=== PATIENT | male | born 1955 | race Hispanic/Latino ===

== ENCOUNTER 2017-10-06 15:39 | Emergency (ER) | payer MEDICARE ==
[2017-10-06] MEDS ORDERED: DEXTROSE 50%-WATER 50 ML DISP.SYRIN IV ONE (16:08)
[2017-10-06 16:15] LABS: EOSINOPHILS % (AUTO) 4.2 % (0.0-8.0); HEMATOCRIT 35.7 % (42-54); LYMPHOCYTES % (AUTO) 7.4 % (21.0-51.0); MEAN CORPUSCULAR HEMOGLOBIN 34.2 pg (27.0-33.0); MEAN CORPUSCULAR HGB CONC 34.7 g/dL (32.0-36.0); MEAN CORPUSCULAR VOLUME 98.6 fL (79-99); NEUTROPHILS % (AUTO) 77.4 % (40.0-77.0); PLATELET COUNT (AUTO) 209 K/uL (130-400); RED BLOOD CELL COUNT(AUTO) 3.62 MIL/uL (4.50-6.20); RED CELL DISTRIBUTION WIDTH 14.2 % (11.0-15.5); WHITE BLOOD COUNT (AUTO) 7.6 K/uL (4.8-10.8)
[2017-10-06 16:25] LABS: POTASSIUM 3.5 mmol/L (3.5-5.1)
[2017-10-06 16:30] LABS: ALBUMIN 3.9 g/dL (3.5-5.0); BILIRUBIN,TOTAL 0.6 mg/dL (0.2-1.0); TOTAL PROTEIN, SERUM 9.5 g/dL (6.0-8.3)
[2017-10-06 16:33] LABS: CREATININE 5.8 mg/dL (0.5-1.5)
[2017-10-06 18:58] LABS: AMMONIA 17 umol/L (11-32)
[2017-10-06 19:03] LABS: ALCOHOL, BLOOD < 3 mg/dL (0-10)
[2017-10-06 19:44] LABS: APPEARANCE,URINE Clear (CLEAR); BILIRUBIN,URINE Negative (NEGATIVE); COLOR,URINE Yellow (YELLOW); GLUCOSE, URINE (UA) Negative (NEGATIVE); KETONES,URINE Negative (NEGATIVE); LEUKOCYTE ESTERASE ,URINE Small (NEGATIVE); NITRATE,URINE Negative (NEGATIVE); OCCULT BLOOD,URINE Negative (NEGATIVE); PH,URINE 6.5 (5.0-8.0); PROTEIN,URINE Negative (NEGATIVE); UROBILINOGEN,URINE 0.2 mg/dL (0.2-1.0)
[2017-10-06 19:52] LABS: AMPHET/METH SCREEN,URINE NEGATIVE (NEGATIVE); BARBITURATE SCREEN, URINE NEGATIVE (NEGATIVE); BENZODIAZEPINES SCREEN,URINE NEGATIVE (NEGATIVE); CANNABINOID SCREEN,URINE NEGATIVE (NEGATIVE); COCAINE SCREEN,URINE NEGATIVE (NEGATIVE); OPIATE SCREEN,URINE NEGATIVE (NEGATIVE); PHENCYCLIDINE SCREEN,URINE NEGATIVE (NEGATIVE)
[2017-10-06 19:53] LABS: BACTERIA,URINE Few /HPF (None Seen); RBC,URINE None Seen /HPF (0-1)
== END 2017-10-06 21:01 | disposition home or self-care (01) ==
LOC: EDH 15:39
DX: E16.2 Hypoglycemia, unspecified (principal); I12.0 Hypertensive chronic kidney disease with stage 5 chronic kidney disease or end stage renal disease; E10.22 Type 1 diabetes mellitus with diabetic chronic kidney disease; N18.6 End stage renal disease; E78.5 Hyperlipidemia, unspecified
CPT/HCPCS: 36415; 80053; 80305; 81001; 82140; 82948 ×3; 84484; 85025; 93005; 96374; 99285; G0480; J7070

== ENCOUNTER 2019-06-25 10:42 | Observation (INO) | payer MEDICARE ==
[~2019-06-25] VITALS: Ht 160 cm; Wt 84.0 kg
[2019-06-25 10:53] LABS: BASOPHILS % (AUTO) 0.9 % (0.0-5.0); EOSINOPHILS % (AUTO) 5.8 % (0.0-8.0); HEMATOCRIT 30.6 % (42-54); LYMPHOCYTES % (AUTO) 22.1 % (21.0-51.0); MEAN CORPUSCULAR HEMOGLOBIN 33.4 pg (27.0-33.0); MEAN CORPUSCULAR HGB CONC 33.7 g/dL (32.0-36.0); MEAN CORPUSCULAR VOLUME 99.4 fL (79-99); MONOCYTES % (AUTO) 25.6 % (3.0-13.0); NEUTROPHILS % (AUTO) 45.4 % (40.0-77.0); PLATELET COUNT (AUTO) 143 K/uL (130-400); RED BLOOD CELL COUNT(AUTO) 3.08 MIL/uL (4.50-6.20); RED CELL DISTRIBUTION WIDTH 12.8 % (11.0-15.5); WHITE BLOOD COUNT (AUTO) 4.3 K/uL (4.8-10.8)
[2019-06-25] MEDS ORDERED: ASPIRIN 81MG TAB.CHEW ONE (11:00)
[2019-06-25 11:14] LABS: BILIRUBIN,TOTAL 0.4 mg/dL (0.2-1.0); POTASSIUM 4.3 mmol/L (3.5-5.1); TOTAL PROTEIN, SERUM 7.5 g/dL (6.0-8.3)
[2019-06-25 11:25] LABS: CREATININE 12.8 mg/dL (0.5-1.5)
[2019-06-25 11:30] LABS: ALBUMIN 6.4 g/dL (3.5-5.0)
[2019-06-25 12:18] LABS: INR 0.94 (0.85-1.15); PARTIAL THROMBOPLASTIN TIME 28.1 SEC (26.3-35.5); PROTHROMBIN TIME 10.2 SEC (9.6-11.6)
[2019-06-25] MEDS ORDERED: ONDANSETRON HCL 4 MG/2 ML VIAL ONE (14:04)
[2019-06-25] MEDS ORDERED: MORPHINE SULFATE 4 MG/1ML SYG ONE (14:05)
[2019-06-25] MEDS ORDERED: NITROGLYCERIN 0.4 MG SL TAB SL ONE (14:05)
[2019-06-25 16:22] VITALS: BP_SYST 190; BP_SYST 191; BP_DIAS 77; BP_DIAS 80
[2019-06-25 17:43] LABS: CREATINE KINASE, TOTAL 222 U/L (21-232); MYOGLOBIN 614 ng/mL (10-92); TROPONIN I < 0.04 ng/mL (0.00-0.06)
[2019-06-25 18:12] VITALS: BP 176/83
[2019-06-25] MEDS ORDERED: ACETAMINOPHEN 325 MG TAB PO PRN (18:30)
[2019-06-25] MEDS ORDERED: 0.9% SODIUM CHLORIDE 1000 ML IV BAG IV PRN (18:30)
[2019-06-25] MEDS ORDERED: SODIUM CHLORIDE 0.9% 1000ML 1,000 ML IV PRN (18:30)
[2019-06-25] MEDS ORDERED: SIMV40TA59 PO (18:49)
[2019-06-25] MEDS ORDERED: TICA90TA PO (18:49)
[2019-06-25] MEDS ORDERED: GABA-531 PO (18:49)
[2019-06-25] MEDS ORDERED: DULA0.75 SQ (18:49)
[2019-06-25] MEDS ORDERED: PIOG45TA64 PO (18:49)
[2019-06-25] MEDS ORDERED: CYAN500T63 PO (18:49)
[2019-06-25] MEDS ORDERED: AMLO5TAB9 PO (18:49)
[2019-06-25] MEDS ORDERED: NIAC-8 PO (18:49)
[2019-06-25] MEDS ORDERED: SITA50TA PO (18:49)
[2019-06-25 19:30] VITALS: BP 176/83
[2019-06-25 23:16] VITALS: BP 163/81
[2019-06-25 23:18] LABS: CREATINE KINASE, TOTAL 211 U/L (21-232); MYOGLOBIN 611 ng/mL (10-92); TROPONIN I < 0.04 ng/mL (0.00-0.06)
[2019-06-26 03:57] VITALS: BP 149/72
[2019-06-26 05:09] LABS: BASOPHILS % (AUTO) 0.9 % (0.0-5.0); EOSINOPHILS % (AUTO) 6.4 % (0.0-8.0); HEMATOCRIT 30.3 % (42-54); LYMPHOCYTES % (AUTO) 24.7 % (21.0-51.0); MEAN CORPUSCULAR HEMOGLOBIN 32.6 pg (27.0-33.0); MEAN CORPUSCULAR HGB CONC 32.3 g/dL (32.0-36.0); MEAN CORPUSCULAR VOLUME 100.7 fL (79-99); MONOCYTES % (AUTO) 24.4 % (3.0-13.0); NEUTROPHILS % (AUTO) 43.3 % (40.0-77.0); PLATELET COUNT (AUTO) 129 K/uL (130-400); RED BLOOD CELL COUNT(AUTO) 3.01 MIL/uL (4.50-6.20); RED CELL DISTRIBUTION WIDTH 12.7 % (11.0-15.5); WHITE BLOOD COUNT (AUTO) 3.4 K/uL (4.8-10.8)
[2019-06-26 05:29] LABS: BILIRUBIN,TOTAL 0.8 mg/dL (0.2-1.0); PHOSPHORUS 4.2 mg/dL (2.5-4.9); TOTAL PROTEIN, SERUM 7.2 g/dL (6.0-8.3)
[2019-06-26 05:48] LABS: CREATININE 8.1 mg/dL (0.5-1.5)
[2019-06-26 07:18] VITALS: BP 150/76
[2019-06-26] MEDS ORDERED: FOLIC ACID/VITAMIN B COMP W-C 1 CAP TAB PO SCH (09:00)
[2019-06-26 10:48] VITALS: BP 145/66
[2019-06-26] MEDS ORDERED: MAG HYDROX/AL HYDROX/SIMETH ES 30 ML SUSP UDCUP PO PRN (12:45)
[2019-06-26] MEDS ORDERED: MAG HYDROX/AL HYDROX/SIMETH ES 30 ML SUSP UDCUP PO SCH (12:45)
--- NOTE | 2019-06-26 15:53 | NUR ---
INITIAL: Met with pt this afternoon to discuss dcp. Pt mentions that he lives w his sons. Prior to admission he was independent w ambulation and ADLs. He has provider services but is unsure #hrs. Per pt he attends HD @ [facility]. Per pt he uses transport services. Pt mentions joselito the feels safe and comfortable to return home at [place]. CM to continue to follow and wait for Md recommendations. Addendum: 06/26/19 at 1555 by SANDEE OLIVERA CM Amended: Links added.
[2019-06-29 07:13] LABS: HEPATITIS A ANTIBODY IGM Negative (Negative); HEPATITIS B CORE IGM Negative (Negative); HEPATITIS Bs ANTIGEN SCREEN P Negative (Negative)
== END 2019-06-26 15:50 | disposition home or self-care (01) ==
LOC: EDH 10:42 → UNDOADMOB 10:43 → EDHIP 10:43 → 3CH 16:07 → EDHIP 16:07
PROVIDERS: ADMIT Internal Medicine Critical Care Medicine; ATTEND Internal Medicine Critical Care Medicine
DX: R07.89 Other chest pain (principal); I12.0 Hypertensive chronic kidney disease with stage 5 chronic kidney disease or end stage renal disease; E11.22 Type 2 diabetes mellitus with diabetic chronic kidney disease; N18.6 End stage renal disease; E78.5 Hyperlipidemia, unspecified; D64.9 Anemia, unspecified; Z99.2 Dependence on renal dialysis; Z91.14 Patient's other noncompliance with medication regimen
CPT/HCPCS: 36415 ×2; 71045; 80053 ×2; 80074; 82550 ×3; 83735; 83874 ×2; 84100; 84484 ×3; 85025 ×2; 85610; 85730; 87804 ×2; 90935; 93005; 99291; G0378 ×12; J2270; J2405

== ENCOUNTER 2019-07-03 07:07 | Inpatient (IN) | payer MEDICARE ==
[~2019-07-03] VITALS: Ht 160 cm; Wt 83.3 kg
[~2019-07-03 07:07] MED LIST: AMLO5TAB9 PO; CYAN500T63 PO; DULA0.75 SQ; GABA-531 PO; NIAC-8 PO; PIOG45TA64 PO; SIMV40TA59 PO; SITA50TA PO; TICA90TA PO
[2019-07-03 07:40] LABS: BASOPHILS % (AUTO) 0.7 % (0.0-5.0); EOSINOPHILS % (AUTO) 6.6 % (0.0-8.0); HEMATOCRIT 31.1 % (42-54); LYMPHOCYTES % (AUTO) 19.4 % (21.0-51.0); MEAN CORPUSCULAR HEMOGLOBIN 32.6 pg (27.0-33.0); MEAN CORPUSCULAR HGB CONC 32.2 g/dL (32.0-36.0); MEAN CORPUSCULAR VOLUME 101.3 fL (79-99); MONOCYTES % (AUTO) 12.7 % (3.0-13.0); NEUTROPHILS % (AUTO) 59.3 % (40.0-77.0); PLATELET COUNT (AUTO) 214 K/uL (130-400); RED BLOOD CELL COUNT(AUTO) 3.07 MIL/uL (4.50-6.20); RED CELL DISTRIBUTION WIDTH 12.7 % (11.0-15.5)
[2019-07-03 07:55] LABS: INR 0.99 (0.85-1.15); PARTIAL THROMBOPLASTIN TIME 27.5 SEC (26.3-35.5); PROTHROMBIN TIME 10.7 SEC (9.6-11.6)
[2019-07-03 08:08] LABS: CREATININE 7.1 mg/dL (0.5-1.5); POTASSIUM 4.1 mmol/L (3.5-5.1)
[2019-07-03 08:11] LABS: ALBUMIN 3.2 g/dL (3.5-5.0); BILIRUBIN,TOTAL 0.6 mg/dL (0.2-1.0)
[2019-07-03] MEDS ORDERED: ASPIRIN 325 MG TABLET ONE (08:35)
[2019-07-03] MEDS ORDERED: MAG HYDROX/AL HYDROX/SIMETH ES 30 ML SUSP UDCUP PO SCH (11:15)
[2019-07-03] MEDS ORDERED: ONDANSETRON HCL 4 MG/2 ML VIAL IV PRN (12:15)
[2019-07-03] MEDS ORDERED: GLUCAGON 1MG KIT 1 MG ML IM PRN (12:15)
[2019-07-03] MEDS ORDERED: HYDRALAZINE HCL 20 MG/ML VIAL IV PRN (12:15)
[2019-07-03] MEDS ORDERED: DEXTROSE 50%-WATER 50 ML DISP.SYRIN IV PRN (12:15)
[2019-07-03] MEDS ORDERED: LACTULOSE 20 GM/30 ML UDCUP PO PRN (12:15)
[2019-07-03] MEDS ORDERED: NITROGLYCERIN 0.4 MG SL TAB SL PRN (12:15)
[2019-07-03 13:30] VITALS: BP 170/84
[2019-07-03] MEDS: ASPIRIN 325 MG TABLET PO SCH (13:33)
[2019-07-03] MEDS ORDERED: SEVE800T27 PO (15:01)
[2019-07-03] MEDS ORDERED: BRIM5DRO OP (15:01)
[2019-07-03] MEDS ORDERED: CARV6.25 PO (15:01)
[2019-07-03] MEDS ORDERED: AEC81 PO (15:02)
--- NOTE | 2019-07-03 15:44 | NUR ---
ADMISSION COMPLETE, REPORT CALLED TO JESENIA ON 3RD FLOOR, PT IS BEING TRANSFERED FROM THIS AREA DUE TO SURGICAL PT'S IN AREA AND HIS COUGHING AND STATING HES RUNNING FEVER'S AT HOME.
[2019-07-03 16:00] VITALS: BP 180/82
[2019-07-03] MEDS: INSULIN HUMULIN R 100 UNIT/ML 3ML SQ SCH ×2 (16:30→21:04)
[2019-07-03] MEDS: ACETAMINOPHEN 325 MG TAB PO PRN ×2 (18:11→23:08)
[2019-07-03] MEDS: IPRATROPIUM/ALBUTEROL SULFATE 3 ML SOLUTION IH SCH (18:24)
[2019-07-03 20:00] VITALS: BP 151/76
[2019-07-03] MEDS: OSELTAMIVIR PHOSPHATE 75 MG CAP PO SCH (21:02)
[2019-07-03] MEDS: GUAIFENESIN-DM 200/20 MG 10 ML PO PRN (21:02)
[2019-07-03] MEDS: GABAPENTIN 100 MG CAPSULE PO SCH (21:02)
[2019-07-03] MEDS: FAMOTIDINE/PF 20 MG/2 ML VIAL IV SCH (21:02)
[2019-07-03] MEDS: HEPARIN SODIUM 5000UNIT/ML 1ML VIAL SQ SCH (21:03)
[2019-07-03 23:41] VITALS: BP 145/62
[2019-07-04] MEDS: IPRATROPIUM/ALBUTEROL SULFATE 3 ML SOLUTION IH SCH ×5 (00:38→23:26)
[2019-07-04 04:01] VITALS: BP 150/82
[2019-07-04 05:20] LABS: HEMATOCRIT 31.9 % (42-54); MEAN CORPUSCULAR HEMOGLOBIN 32.4 pg (27.0-33.0); MEAN CORPUSCULAR HGB CONC 31.7 g/dL (32.0-36.0); MEAN CORPUSCULAR VOLUME 102.2 fL (79-99); PLATELET COUNT (AUTO) 194 K/uL (130-400); RED BLOOD CELL COUNT(AUTO) 3.12 MIL/uL (4.50-6.20); RED CELL DISTRIBUTION WIDTH 12.6 % (11.0-15.5); WHITE BLOOD COUNT (AUTO) 5.5 K/uL (4.8-10.8)
[2019-07-04 05:28] LABS: HEMOGLOBIN A1C 7.9 % (4.0-6.0)
[2019-07-04 05:37] LABS: POTASSIUM 4.2 mmol/L (3.5-5.1); TROPONIN I 0.14 ng/mL (0.00-0.06)
[2019-07-04 05:44] LABS: CREATININE 8.4 mg/dL (0.5-1.5)
[2019-07-04] MEDS: INSULIN HUMULIN R 100 UNIT/ML 3ML SQ SCH ×4 (06:44→19:35)
[2019-07-04 07:34] VITALS: BP 163/83
[2019-07-04 08:00] VITALS: BP_SYST 149; BP_SYST 158; BP_SYST 163; BP_DIAS 67; BP_DIAS 80; BP_DIAS 83
[2019-07-04] MEDS: OSELTAMIVIR PHOSPHATE 75 MG CAP PO SCH ×2 (10:24→20:17)
[2019-07-04] MEDS: ASPIRIN 325 MG TABLET PO SCH (10:25)
[2019-07-04] MEDS: FAMOTIDINE/PF 20 MG/2 ML VIAL IV SCH ×2 (10:25→20:17)
[2019-07-04] MEDS: HEPARIN SODIUM 5000UNIT/ML 1ML VIAL SQ SCH (10:31)
[2019-07-04] MEDS: GABAPENTIN 100 MG CAPSULE PO SCH ×2 (10:32→20:17)
[2019-07-04 12:10] VITALS: BP 173/76
--- NOTE | 2019-07-04 12:55 | NUR ---
DR. CORTES AND IN TO SEE PT. NEW ORDERS IN.
--- NOTE | 2019-07-04 16:00 | NUR ---
SPOUSE IN TO VISIT AND WITH SEVERAL QUESTIONS RE REPORTS AND PENDING PROCEDURE.
[2019-07-04 17:01] VITALS: BP 172/83
[2019-07-04 19:34] VITALS: BP_SYST 144; BP_SYST 153; BP_SYST 156; BP_DIAS 71; BP_DIAS 76; BP_DIAS 82
[2019-07-05] VITALS (8 sets, daily range): BP systolic 115–185; BP diastolic 59–91
[2019-07-05] MEDS: INSULIN HUMULIN R 100 UNIT/ML 3ML SQ SCH ×4 (05:16→22:05)
[2019-07-05] MEDS: IPRATROPIUM/ALBUTEROL SULFATE 3 ML SOLUTION IH SCH ×3 (05:26→23:31)
[2019-07-05 06:13] LABS: HEMATOCRIT 29.8 % (42-54); MEAN CORPUSCULAR HEMOGLOBIN 33.1 pg (27.0-33.0); MEAN CORPUSCULAR HGB CONC 32.6 g/dL (32.0-36.0); MEAN CORPUSCULAR VOLUME 101.7 fL (79-99); PLATELET COUNT (AUTO) 177 K/uL (130-400); RED BLOOD CELL COUNT(AUTO) 2.93 MIL/uL (4.50-6.20); RED CELL DISTRIBUTION WIDTH 12.8 % (11.0-15.5); WHITE BLOOD COUNT (AUTO) 5.5 K/uL (4.8-10.8)
[2019-07-05 06:46] LABS: POTASSIUM 4.4 mmol/L (3.5-5.1)
[2019-07-05 07:34] LABS: CREATININE 10.2 mg/dL (0.5-1.5)
[2019-07-05] MEDS: ASPIRIN 325 MG TABLET PO SCH (09:00)
[2019-07-05] MEDS: OSELTAMIVIR PHOSPHATE 75 MG CAP PO SCH ×2 (09:00→22:04)
[2019-07-05] MEDS: GABAPENTIN 100 MG CAPSULE PO SCH ×2 (09:00→22:04)
--- NOTE | 2019-07-05 10:39 | NUR ---
RD NOTIFICATION DIET: RENAL DIALYSIS. PO INTAKE 50%. RD CONSULTED DUE TO PT WITH D/V EPISODES. ALTERED NUTRITION RELATED LABS REVIEWED. PT IS ON DIALYSIS AT THIS TIME. MEDS REVIEWED. SKIN IS INTACT. PENDING BIOPSY OF RETROPERITONEAL MASS. RD RECOMMENDS FOLATE AND VITAMIN B12 BLOOD DRAW; POSSIBLE SUPPLEMENTATION NEEDED FOR VITAMIN B12 OR FOLIC ACID ADD NEPRO BID TO DIET ORDER WILL CONTINUE TO MONITOR AND FOLLOW UP, THANK YOU. Addendum: 07/05/19 at [address] Amended: Links added.
[2019-07-05] MEDS: FAMOTIDINE/PF 20 MG/2 ML VIAL IV SCH ×2 (10:41→22:04)
[2019-07-05] MEDS: ACETAMINOPHEN 325 MG TAB PO PRN (22:53)
[2019-07-06] MEDS: INSULIN HUMULIN R 100 UNIT/ML 3ML SQ SCH ×4 (05:50→21:00)
[2019-07-06 06:15] LABS: HEMATOCRIT 34.8 % (42-54); MEAN CORPUSCULAR HGB CONC 32.2 g/dL (32.0-36.0); MEAN CORPUSCULAR VOLUME 102.7 fL (79-99); PLATELET COUNT (AUTO) 230 K/uL (130-400); RED BLOOD CELL COUNT(AUTO) 3.39 MIL/uL (4.50-6.20); RED CELL DISTRIBUTION WIDTH 13.4 % (11.0-15.5); WHITE BLOOD COUNT (AUTO) 15.1 K/uL (4.8-10.8)
[2019-07-06 06:22] LABS: MAGNESIUM 2.2 mg/dL (1.80-2.40); PHOSPHORUS 2.2 mg/dL (2.5-4.9); POTASSIUM 4.2 mmol/L (3.5-5.1)
[2019-07-06] MEDS: IPRATROPIUM/ALBUTEROL SULFATE 3 ML SOLUTION IH SCH ×4 (06:31→23:06)
[2019-07-06 06:34] LABS: CREATININE 7.9 mg/dL (0.5-1.5)
[2019-07-06 06:52] LABS: APPEARANCE,URINE Turbid (CLEAR); BILIRUBIN,URINE Negative (NEGATIVE); COLOR,URINE Yellow (YELLOW); GLUCOSE, URINE (UA) TRACE mg/dL (NEGATIVE); KETONES,URINE Negative (NEGATIVE); LEUKOCYTE ESTERASE ,URINE Large (NEGATIVE); NITRATE,URINE Negative (NEGATIVE); OCCULT BLOOD,URINE Moderate (NEGATIVE); PROTEIN,URINE 300 mg/dL (NEGATIVE); UROBILINOGEN,URINE 0.2 mg/dL (0.2-1.0)
[2019-07-06 06:58] LABS: AMPHET/METH SCREEN,URINE NEGATIVE (NEGATIVE); BARBITURATE SCREEN, URINE NEGATIVE (NEGATIVE); BENZODIAZEPINES SCREEN,URINE NEGATIVE (NEGATIVE); CANNABINOID SCREEN,URINE NEGATIVE (NEGATIVE); COCAINE SCREEN,URINE NEGATIVE (NEGATIVE); OPIATE SCREEN,URINE NEGATIVE (NEGATIVE); PHENCYCLIDINE SCREEN,URINE NEGATIVE (NEGATIVE)
[2019-07-06 07:14] LABS: HEPATITIS Bs ANTIGEN SCREEN P Negative (Negative)
[2019-07-06 07:24] LABS: BACTERIA,URINE Moderate /HPF (None Seen); WBC,URINE TNTC /HPF (0-1)
[2019-07-06 07:58] VITALS: BP 180/77
[2019-07-06 08:27] LABS: EOSINOPHILS % (MANUAL) 5 % (1-6); LYMPHOCYTES % (MANUAL) 2 % (22-44); MONOCYTES % (MANUAL) 6 % (2-9); SEGMENTED NEUTROPHILS % 87 % (40-70)
[2019-07-06 08:28] LABS: MAN.DIFF COMMENT-IMPRESSION MANUAL DIFFERENTIAL; PLATELET MORPHOLOGY COMMENT ADEQUATE
[2019-07-06 11:14] VITALS: BP 164/76
[2019-07-06 11:17] VITALS: BP 122/69
[2019-07-06 11:19] VITALS: BP 111/65
[2019-07-06] MEDS: ACETAMINOPHEN 325 MG TAB PO PRN ×3 (11:27→23:41)
--- NOTE | 2019-07-06 13:03 | NUR ---
RE: CT GUIDED BIOPSY OF RETROPERITONEAL MASS SPOKE TO DR. ESPINOZA REGARDING IMAGES AND ORDER. DR. ESPINOZA STATES, "I WILL SPEAK TO DR. CORTES REGARDING BIOPSY ORDER." STATED, "PLEASE FEED PATIENT."
--- NOTE | 2019-07-06 13:34 | NUR ---
1316 patient signed IM Letter, I faxed IM Letter to [phone] and placed in chart under consent tab.
[2019-07-06] MEDS ORDERED: VANCOMYCIN 1.5 GM in SODIUM CHLORIDE 0.9% 250 ML IV ONE (14:15)
[2019-07-06] MEDS ORDERED: VANCOMYCIN PROTOCOL PER PHARMACY IV SCH (14:15)
[2019-07-06] MEDS: OSELTAMIVIR PHOSPHATE 75 MG CAP PO SCH ×2 (15:05→21:15)
[2019-07-06] MEDS: ASPIRIN 325 MG TABLET PO SCH (15:05)
[2019-07-06] MEDS: GUAIFENESIN-DM 200/20 MG 10 ML PO PRN (15:05)
[2019-07-06] MEDS: FOLIC ACID/VITAMIN B COMP W-C 1 CAP TAB PO SCH (15:05)
[2019-07-06] MEDS: GABAPENTIN 100 MG CAPSULE PO SCH ×2 (15:06→21:15)
[2019-07-06] MEDS: FAMOTIDINE/PF 20 MG/2 ML VIAL IV SCH ×2 (15:06→21:15)
[2019-07-06 15:43] VITALS: BP 120/64
[2019-07-06] MEDS: ZOSYN 3.375GM+NS 50ML 50 ML IV SCH (18:13)
[2019-07-06 23:34] VITALS: BP 149/65
[2019-07-06] MEDS: BENZONATATE 100 MG CAPSULE PO PRN (23:41)
[2019-07-07 05:01] LABS: HEMATOCRIT 30.7 % (42-54); MEAN CORPUSCULAR HEMOGLOBIN 33.2 pg (27.0-33.0); MEAN CORPUSCULAR HGB CONC 32.2 g/dL (32.0-36.0); PLATELET COUNT (AUTO) 193 K/uL (130-400); RED BLOOD CELL COUNT(AUTO) 2.98 MIL/uL (4.50-6.20); RED CELL DISTRIBUTION WIDTH 13.9 % (11.0-15.5); WHITE BLOOD COUNT (AUTO) 11.1 K/uL (4.8-10.8)
[2019-07-07 05:18] LABS: ALBUMIN 3.2 g/dL (3.5-5.0); BILIRUBIN,TOTAL 0.5 mg/dL (0.2-1.0); POTASSIUM 4.2 mmol/L (3.5-5.1); TOTAL PROTEIN, SERUM 8.4 g/dL (6.0-8.3)
[2019-07-07 05:22] LABS: BAND NEUTROPHILS % (MANUAL) 5 % (0-2); EOSINOPHILS % (MANUAL) 1 % (1-6); LYMPHOCYTES % (MANUAL) 12 % (22-44); MAN.DIFF COMMENT-IMPRESSION MANUAL DIFFERENTIAL; MONOCYTES % (MANUAL) 4 % (2-9); PLATELET MORPHOLOGY COMMENT ADEQUATE; SEGMENTED NEUTROPHILS % 78 % (40-70)
[2019-07-07] MEDS: ZOSYN 3.375GM+NS 50ML 50 ML IV SCH ×2 (05:58→18:34)
[2019-07-07] MEDS: IPRATROPIUM/ALBUTEROL SULFATE 3 ML SOLUTION IH SCH ×4 (06:47→23:18)
[2019-07-07] MEDS: INSULIN HUMULIN R 100 UNIT/ML 3ML SQ SCH ×4 (07:03→20:07)
[2019-07-07 08:00] VITALS: BP_SYST 129; BP_SYST 138; BP_SYST 155; BP_DIAS 73; BP_DIAS 80
[2019-07-07] MEDS: GABAPENTIN 100 MG CAPSULE PO SCH ×2 (09:00→20:01)
[2019-07-07] MEDS: FOLIC ACID/VITAMIN B COMP W-C 1 CAP TAB PO SCH (09:00)
[2019-07-07] MEDS: ASPIRIN 325 MG TABLET PO SCH (09:00)
[2019-07-07] MEDS: FAMOTIDINE/PF 20 MG/2 ML VIAL IV SCH ×2 (09:00→20:00)
[2019-07-07] MEDS: OSELTAMIVIR PHOSPHATE 75 MG CAP PO SCH ×2 (09:00→20:01)
--- NOTE | 2019-07-07 10:00 | NUR ---
LYNNE MONTEJO NP ROUNDED ON PATIENT ORDERS RECEIVED TO OBTAIN CULTURE ON WOUND ON RIGHT F/A, CULTURE OBTAINED AND SENT TO LAB.
[2019-07-07 12:00] VITALS: BP 182/85
[2019-07-07 16:00] VITALS: BP 81/51
--- NOTE | 2019-07-07 18:05 | NUR ---
PHYSICIAN ROUNDS DR EWING ROUNDED ON PATIENT ORDERES RECEIVED FOR AM LAB CBC WITH MANUAL DIFF, CMP AND PHOS , ORDERES PLACED
[2019-07-07 19:52] VITALS: BP 117/65
[2019-07-07 23:29] VITALS: BP 107/56
[2019-07-08 04:00] VITALS: BP 109/60
[2019-07-08 05:11] LABS: HEMATOCRIT 34.4 % (42-54); MEAN CORPUSCULAR HEMOGLOBIN 32.2 pg (27.0-33.0); MEAN CORPUSCULAR HGB CONC 31.7 g/dL (32.0-36.0); MEAN CORPUSCULAR VOLUME 101.8 fL (79-99); PLATELET COUNT (AUTO) 195 K/uL (130-400); RED BLOOD CELL COUNT(AUTO) 3.38 MIL/uL (4.50-6.20); RED CELL DISTRIBUTION WIDTH 14.3 % (11.0-15.5); WHITE BLOOD COUNT (AUTO) 11.3 K/uL (4.8-10.8)
[2019-07-08] MEDS: ZOSYN 3.375GM+NS 50ML 50 ML IV SCH ×2 (05:29→18:41)
[2019-07-08 05:31] LABS: EOSINOPHILS % (MANUAL) 2 % (1-6); LYMPHOCYTES % (MANUAL) 11 % (22-44); MAN.DIFF COMMENT-IMPRESSION MANUAL DIFFERENTIAL; MONOCYTES % (MANUAL) 10 % (2-9); SEGMENTED NEUTROPHILS % 77 % (40-70)
[2019-07-08 05:33] LABS: PLATELET MORPHOLOGY COMMENT ADEQUATE
[2019-07-08] MEDS: BENZONATATE 100 MG CAPSULE PO PRN (05:36)
[2019-07-08 05:37] LABS: ALBUMIN 3.1 g/dL (3.5-5.0); BILIRUBIN,TOTAL 0.5 mg/dL (0.2-1.0); POTASSIUM 3.8 mmol/L (3.5-5.1)
[2019-07-08] MEDS: INSULIN HUMULIN R 100 UNIT/ML 3ML SQ SCH ×4 (06:28→21:00)
[2019-07-08] MEDS: IPRATROPIUM/ALBUTEROL SULFATE 3 ML SOLUTION IH SCH (06:57)
[2019-07-08 08:00] VITALS: BP 147/64
[2019-07-08] MEDS: ASPIRIN 325 MG TABLET PO SCH (09:00)
[2019-07-08] MEDS: FOLIC ACID/VITAMIN B COMP W-C 1 CAP TAB PO SCH (09:54)
[2019-07-08] MEDS: FAMOTIDINE/PF 20 MG/2 ML VIAL IV SCH ×2 (09:54→20:01)
[2019-07-08] MEDS: OSELTAMIVIR PHOSPHATE 75 MG CAP PO SCH (09:54)
[2019-07-08] MEDS: GABAPENTIN 100 MG CAPSULE PO SCH ×2 (09:54→20:01)
[2019-07-08] MEDS: GUAIFENESIN-DM 200/20 MG 10 ML PO PRN (10:49)
[2019-07-08] MEDS ORDERED: IPRATROPIUM/ALBUTEROL SULFATE 3 ML SOLUTION IH PRN (11:15)
[2019-07-08] MEDS ORDERED: NEOMY SULF/BACITRA/POLYMYXIN B 1 EACH PACKET TP SCH (11:45)
[2019-07-08 11:58] VITALS: BP 146/55
--- NOTE | 2019-07-08 14:38 | NUR ---
RD FOLLOW UP PT IS TOLERATING CURRENT DIET PER RN. PLANNING D/C IN PLACE. NO FURTHER ISSUES OR COMPLAINTS AT THIS TIME.
[2019-07-08 16:00] VITALS: BP 140/90
[2019-07-08] MEDS: ACETAMINOPHEN 325 MG TAB PO PRN (17:40)
[2019-07-08 20:00] VITALS: BP 158/76
[2019-07-08] MEDS: NEOMY SULF/BACITRA/POLYMYXIN B 1 EACH PACKET TP SCH (20:01)
[2019-07-09] VITALS (7 sets, daily range): BP systolic 124–165; BP diastolic 70–86
[2019-07-09] MEDS: ACETAMINOPHEN 325 MG TAB PO PRN (01:10)
[2019-07-09 05:09] LABS: HEMATOCRIT 29.3 % (42-54); MEAN CORPUSCULAR HEMOGLOBIN 33.3 pg (27.0-33.0); MEAN CORPUSCULAR HGB CONC 32.8 g/dL (32.0-36.0); MEAN CORPUSCULAR VOLUME 101.7 fL (79-99); PLATELET COUNT (AUTO) 204 K/uL (130-400); RED BLOOD CELL COUNT(AUTO) 2.88 MIL/uL (4.50-6.20); RED CELL DISTRIBUTION WIDTH 13.8 % (11.0-15.5); WHITE BLOOD COUNT (AUTO) 9.6 K/uL (4.8-10.8)
[2019-07-09] MEDS: ZOSYN 3.375GM+NS 50ML 50 ML IV SCH (05:16)
[2019-07-09 05:23] LABS: POTASSIUM 4.2 mmol/L (3.5-5.1)
[2019-07-09 05:38] LABS: BAND NEUTROPHILS % (MANUAL) 7 % (0-2); EOSINOPHILS % (MANUAL) 2 % (1-6); LYMPHOCYTES % (MANUAL) 12 % (22-44); MONOCYTES % (MANUAL) 5 % (2-9); SEGMENTED NEUTROPHILS % 74 % (40-70)
[2019-07-09 05:39] LABS: MAN.DIFF COMMENT-IMPRESSION MANUAL DIFFERENTIAL; PLATELET MORPHOLOGY COMMENT ADEQUATE
[2019-07-09] MEDS: INSULIN HUMULIN R 100 UNIT/ML 3ML SQ SCH ×4 (06:48→20:25)
[2019-07-09] MEDS: FOLIC ACID/VITAMIN B COMP W-C 1 CAP TAB PO SCH (10:34)
[2019-07-09] MEDS: ASPIRIN 325 MG TABLET PO SCH (10:34)
[2019-07-09] MEDS: FAMOTIDINE/PF 20 MG/2 ML VIAL IV SCH ×2 (10:35→20:25)
[2019-07-09] MEDS: GABAPENTIN 100 MG CAPSULE PO SCH ×2 (10:35→20:25)
[2019-07-09] MEDS: NEOMY SULF/BACITRA/POLYMYXIN B 1 EACH PACKET TP SCH ×2 (10:38→20:26)
[2019-07-09] MEDS: BENZONATATE 100 MG CAPSULE PO PRN (10:49)
--- NOTE | 2019-07-09 14:02 | NUR ---
CM NOTE NEW REFERRAL FOR [facility]. MEET WITH PATIENT IN ROOM, PANCHO VERBAL CONSENT FOR [facility], VERBALIZED UNDERSTANDING OF REFERRAL. CLINICALS AND MD NOTES FAXED AND CONFIRMED RECEIVED. PER RADHA, PATIENT MORE THAN LIKELY TO BE ACCEPTED, POSSIBLY TOMORROW. PENDING PICC LINE, PER RADHA, MAY BE DONE AT [facility].
--- NOTE | 2019-07-09 16:00 | NUR ---
CM NOTE MEET WITH PATIENT IN ROOM. LIVES WITH SPOUSE AND 2 ADULT CHILDREN, HAS CANE AND WALKER WITH WHEELS, INDEPENDENT WITH ADLS, AND HAS PROVIDER DAILY, USER OF AMOUNT OF HOURS, HAS HEMODIALYSIS AND FOLLOWS UP WIHT US RENAL MWF, PER PATIENT FEELS SAFE TO RETURN HOME ONCE DISCHARGE FROM HOSPITAL. Addendum: 07/09/19 at 1604 by CARMELITA ORELLANA RN CM Amended: Links added.
[2019-07-09] MEDS: CEFAZOLIN SODIUM 1 GM VIAL IVP SCH (20:25)
[2019-07-10] VITALS: BP 143/74
[2019-07-10 04:00] VITALS: BP 168/71
[2019-07-10 05:00] VITALS: BP 146/76
[2019-07-10 05:59] LABS: HEMATOCRIT 31.6 % (42-54); MEAN CORPUSCULAR HEMOGLOBIN 32.3 pg (27.0-33.0); MEAN CORPUSCULAR HGB CONC 31.6 g/dL (32.0-36.0); MEAN CORPUSCULAR VOLUME 101.9 fL (79-99); PLATELET COUNT (AUTO) 248 K/uL (130-400); RED CELL DISTRIBUTION WIDTH 14.1 % (11.0-15.5); WHITE BLOOD COUNT (AUTO) 7.6 K/uL (4.8-10.8)
[2019-07-10 06:15] LABS: CREATININE 8.2 mg/dL (0.5-1.5)
[2019-07-10] MEDS: INSULIN HUMULIN R 100 UNIT/ML 3ML SQ SCH ×3 (06:16→16:30)
[2019-07-10 06:24] LABS: BAND NEUTROPHILS % (MANUAL) 2 % (0-2); BASOPHILS % (MANUAL) 1 % (0-2); EOSINOPHILS % (MANUAL) 5 % (1-6); LYMPHOCYTES % (MANUAL) 17 % (22-44); MAN.DIFF COMMENT-IMPRESSION MANUAL DIFFERENTIAL; MONOCYTES % (MANUAL) 15 % (2-9); SEGMENTED NEUTROPHILS % 60 % (40-70)
[2019-07-10 06:25] LABS: PLATELET MORPHOLOGY COMMENT ADEQUATE
[2019-07-10 08:00] VITALS: BP 161/78
[2019-07-10] MEDS: FOLIC ACID/VITAMIN B COMP W-C 1 CAP TAB PO SCH (09:10)
[2019-07-10] MEDS: FAMOTIDINE/PF 20 MG/2 ML VIAL IV SCH (09:10)
[2019-07-10] MEDS: GABAPENTIN 100 MG CAPSULE PO SCH (09:10)
[2019-07-10] MEDS: ASPIRIN 325 MG TABLET PO SCH (09:10)
[2019-07-10] MEDS: NEOMY SULF/BACITRA/POLYMYXIN B 1 EACH PACKET TP SCH ×3 (09:10→17:30)
[2019-07-10 12:00] VITALS: BP 149/75
--- NOTE | 2019-07-10 12:38 | NUR ---
[facility] ACC[facility] CM spoke to Estefani with [facility]. States pt has been accepted. CM notified nursing to call report between 5-6 pm per Estefani. EMS arranged. Addendum: 07/10/19 at 1240 by NABILA YOUNG Amended: Links added.
[2019-07-10] MEDS: CEFAZOLIN SODIUM 1 GM VIAL IVP SCH (17:48)
--- NOTE | 2019-07-10 18:32 | NUR ---
NOTE DISCHARGE INSTRUCTIONS GIVEN TO PATIENT THOUGHT HE IS GOING TO [facility]. SPOKE TO NURSE AT [facility] GAVE REPORT AND CALLED EMS FOR TRANSPORTATION. PATIENT RECEIVED [facility] IV PRIOR TO DC AND PRIOR TO DC IV. HE WILL CONTINUE AT [facility] WITH [facility] DAILY FOR BACTEREMIA AND RIGHT FOREARM WOUND.
[2019-07-13] MEDS ORDERED: VANCOMYCIN 1.5 GM in SODIUM CHLORIDE 0.9% 250 ML IV SCH (14:00)
== END 2019-07-10 19:02 | DRG 391 ==
LOC: EDH 07:07 → EDHIP 09:30 → OBSVTOIN 09:30 → 4AH 12:32 → 3AH 16:00
PROVIDERS: ADMIT Internal Medicine Critical Care Medicine; ATTEND Internal Medicine Critical Care Medicine
PROC: 5A1D70Z Performance of Urinary Filtration, Intermittent, Less than 6 Hours Per Day (ICD-10-PCS; principal; 2019-07-05)
PROC: 5A1D70Z Performance of Urinary Filtration, Intermittent, Less than 6 Hours Per Day (ICD-10-PCS; 2019-07-07)
PROC: 5A1D70Z Performance of Urinary Filtration, Intermittent, Less than 6 Hours Per Day (ICD-10-PCS; 2019-07-09)
DX: K52.9 Noninfective gastroenteritis and colitis, unspecified (principal); N18.6 End stage renal disease; A41.9 Sepsis, unspecified organism; I25.110 Atherosclerotic heart disease of native coronary artery with unstable angina pectoris; I13.2 Hypertensive heart and chronic kidney disease with heart failure and with stage 5 chronic kidney disease, or end stage renal disease; I50.32 Chronic diastolic (congestive) heart failure; L02.413 Cutaneous abscess of right upper limb; L02.414 Cutaneous abscess of left upper limb; Q61.9 Cystic kidney disease, unspecified; R55 Syncope and collapse; D64.9 Anemia, unspecified; B95.61 Methicillin susceptible Staphylococcus aureus infection as the cause of diseases classified elsewhere; I34.0 Nonrheumatic mitral (valve) insufficiency; E11.22 Type 2 diabetes mellitus with diabetic chronic kidney disease; E78.00 Pure hypercholesterolemia, unspecified; E78.5 Hyperlipidemia, unspecified; Z99.2 Dependence on renal dialysis; I25.2 Old myocardial infarction; Z79.82 Long term (current) use of aspirin; Z79.02 Long term (current) use of antithrombotics/antiplatelets; Z91.19 Patient's noncompliance with other medical treatment and regimen; Z83.3 Family history of diabetes mellitus
CPT/HCPCS: 36415; 71045; 74150; 74181; 80048; 80053; 80202; 80305; 81001; 82550; 82948; 83036; 83735; 83874; 84100; 84484; 85025; 85027; 85610; 85730; 86704; 86706; 87040; 87070; 87076; 87077; 87088; 87186; 87340; 87520; 87804; 90935; 93005; 93306; 93356; 93880; 93971; 94640; 94664; 99291; G0378; J0360; J0690; J1644; J1815; J2543; J3370; J3490; J7030

== ENCOUNTER 2020-06-22 11:36 | Observation (INO) | payer MEDICARE ==
[~2020-06-22] VITALS: Ht 160 cm; Wt 86.6 kg
[~2020-06-22 11:36] MED LIST changes: -CALC667C10 PO; -CEPH500B PO; -FERR210T PO; -LIDOCAINE HCL 2% JELLY 5 ML TP ONE; -OMEP20CA12 PO
[2020-06-22] MEDS ORDERED: 0.9%NACL 10ML VIAL IVP PRN (12:45)
[2020-06-22 13:02] LABS: BASOPHILS % (AUTO) 1.1 % (0.0-5.0); EOSINOPHILS % (AUTO) 8.2 % (0.0-8.0); HEMATOCRIT 37.7 % (42-54); LYMPHOCYTES % (AUTO) 20.4 % (21.0-51.0); MEAN CORPUSCULAR HEMOGLOBIN 33.1 pg (27.0-33.0); MEAN CORPUSCULAR HGB CONC 32.1 g/dL (32.0-36.0); MONOCYTES % (AUTO) 14.3 % (3.0-13.0); NEUTROPHILS % (AUTO) 55.4 % (40.0-77.0); PLATELET COUNT (AUTO) 155 K/uL (130-400); RED BLOOD CELL COUNT(AUTO) 3.66 MIL/uL (4.50-6.20); RED CELL DISTRIBUTION WIDTH 13.3 % (11.0-15.5); WHITE BLOOD COUNT (AUTO) 7.1 K/uL (4.8-10.8)
[2020-06-22 13:12] LABS: CREATININE 7.5 mg/dL (0.5-1.5); POTASSIUM 4.7 mmol/L (3.5-5.1)
[2020-06-22 13:14] LABS: PROTHROMBIN TIME 10.9 SEC (9.6-11.6)
[2020-06-22 13:16] LABS: PARTIAL THROMBOPLASTIN TIME 27.1 SEC (26.3-35.5)
[2020-06-22 13:17] LABS: ALBUMIN 3.6 g/dL (3.5-5.0); BILIRUBIN,TOTAL 0.5 mg/dL (0.2-1.0); TOTAL PROTEIN, SERUM 8.3 g/dL (6.0-8.3)
[2020-06-22] MEDS ORDERED: VANCOMYCIN PROTOCOL PER PHARMACY IV PRN (15:00)
[2020-06-22] MEDS ORDERED: ZOLPIDEM TARTRATE 5 MG TAB PO PRN (15:00)
[2020-06-22] MEDS ORDERED: NITROGLYCERIN 0.4 MG SL TAB SL PRN (15:00)
[2020-06-22] MEDS ORDERED: ACETAMINOPHEN 325 MG TAB PO PRN ×2 (15:00)
[2020-06-22] MEDS ORDERED: LACTULOSE 20 GM/30 ML UDCUP PO PRN (15:00)
[2020-06-22] MEDS ORDERED: DIPHENHYDRAMINE HCL 25 MG CAPSULE PO PRN (15:00)
[2020-06-22] MEDS ORDERED: DiphenhydrAMINE HCL 50 MG/ML VIAL IV PRN (15:00)
[2020-06-22] MEDS ORDERED: ONDANSETRON 4MG INJ IV PRN (15:00)
[2020-06-22] MEDS ORDERED: ACETAMINOPHEN WITH CODEINE 1 TAB TAB PO PRN (15:00)
[2020-06-22] MEDS ORDERED: MORPHINE 2 MG SYG IV PRN (15:00)
[2020-06-22] MEDS ORDERED: MAGNESIUM 2GM PREMIX 50ML 50 ML IV PRN (15:00)
[2020-06-22] MEDS ORDERED: HYDRALAZINE 20MG/ML VIAL IV PRN (15:00)
[2020-06-22] MEDS ORDERED: GUAIFENESIN-DM 200/20 MG 10 ML PO PRN (15:00)
[2020-06-22] MEDS ORDERED: MAG/ALUM/SIMETH 30 ML UDCUP PO PRN (15:00)
[2020-06-22] MEDS ORDERED: COMPOUND IV REFRIGERATED 1 EACH IVSOLN MISC PRN (15:15)
[2020-06-22] MEDS ORDERED: VANCOMYCIN 1G 1.25 GM in 0.9% NACL 250ML 250 ML IV SCH (16:00)
[2020-06-22] MEDS: INSULIN HUMULIN R 100 UNIT/ML 3ML SQ SCH ×2 (16:30→21:00)
[2020-06-22] MEDS ORDERED: OMEP20CA12 PO (19:31)
[2020-06-22] MEDS ORDERED: CALC667C10 PO (19:31)
[2020-06-22] MEDS ORDERED: FERR210T PO (19:31)
[2020-06-22] MEDS ORDERED: PHARMACY COMMUNICATION MISC SCH (19:45)
[2020-06-22] MEDS ORDERED: ZOSYN 3.375GM+NS 50ML 50 ML IV ONE (19:48)
[2020-06-22 19:50] VITALS: BP 140/80
[2020-06-22] MEDS: ZOSYN 3.375GM+NS 50ML 50 ML IV SCH (20:01)
[2020-06-22] MEDS: VANCOMYCIN 1G 1.25 GM in 0.9% NACL 250ML 250 ML IV SCH ×2 (20:02→20:20)
[2020-06-22] MEDS: Vitamin B Complex/Vit C/Folic Acid PO SCH (20:02)
[2020-06-22] MEDS: HEPARIN 5,000 UNIT VIAL SQ SCH (20:03)
[2020-06-22 23:21] VITALS: BP 158/83
[2020-06-23] VITALS (11 sets, daily range): BP systolic 125–157; BP diastolic 71–79
[2020-06-23] MEDS: HEPARIN 5,000 UNIT VIAL SQ SCH ×2 (01:02→21:20)
[2020-06-23 05:14] LABS: BASOPHILS % (AUTO) 0.9 % (0.0-5.0); EOSINOPHILS % (AUTO) 7.5 % (0.0-8.0); HEMATOCRIT 38.2 % (42-54); LYMPHOCYTES % (AUTO) 25.1 % (21.0-51.0); MEAN CORPUSCULAR HEMOGLOBIN 33.2 pg (27.0-33.0); MEAN CORPUSCULAR HGB CONC 31.9 g/dL (32.0-36.0); MEAN CORPUSCULAR VOLUME 103.8 fL (79-99); MONOCYTES % (AUTO) 14.4 % (3.0-13.0); NEUTROPHILS % (AUTO) 50.9 % (40.0-77.0); PLATELET COUNT (AUTO) 145 K/uL (130-400); RED BLOOD CELL COUNT(AUTO) 3.68 MIL/uL (4.50-6.20); RED CELL DISTRIBUTION WIDTH 13.2 % (11.0-15.5); WHITE BLOOD COUNT (AUTO) 5.9 K/uL (4.8-10.8)
[2020-06-23] MEDS: INSULIN HUMULIN R 100 UNIT/ML 3ML SQ SCH ×4 (05:21→21:00)
[2020-06-23 05:29] LABS: INR 1.02 (0.85-1.15); PROTHROMBIN TIME 11.1 SEC (9.6-11.6)
[2020-06-23 05:31] LABS: PARTIAL THROMBOPLASTIN TIME 27.9 SEC (26.3-35.5)
[2020-06-23 05:46] LABS: CREATININE 6.1 mg/dL (0.5-1.5); PHOSPHORUS 4.6 mg/dL (2.5-4.9); POTASSIUM 4.1 mmol/L (3.5-5.1)
[2020-06-23 06:14] LABS: B-TYPE NATRIURETIC PEPTIDE 76 pg/mL (0-100)
[2020-06-23] MEDS: ZOSYN 3.375GM+NS 50ML 50 ML IV SCH ×2 (10:21→21:19)
[2020-06-23] MEDS: Vitamin B Complex/Vit C/Folic Acid PO SCH (10:21)
[2020-06-23] MEDS: FAMOTIDINE 20MG TAB PO SCH (10:21)
[2020-06-23] MEDS ORDERED: LIDOCAINE HCL 1% MDV 50ML VIAL ONE (11:08)
[2020-06-23] MEDS ORDERED: IODIXANOL 320 MG/ML 100 ML VIAL ONE (11:08)
[2020-06-23] MEDS ORDERED: FENTANYL CITRATE PF 50 MCG/1 ML 2ML VIAL ONE (11:32)
[2020-06-23] MEDS ORDERED: MIDAZOLAM HCL 1 MG/ML 2ML VIAL ONE (11:32)
[2020-06-23] MEDS ORDERED: HEPARIN 10,000 UNIT/10ML (1,000 UNIT/ML) VIAL ONE (11:38)
[2020-06-23] MEDS ORDERED: CEFAZOLIN SODIUM 1 GM VIAL ONE (12:23)
[2020-06-23 13:36] LABS: HEPATITIS B CORE IGM SEE SEPARATE REPORT (Negative); HEPATITIS Bs ANTIGEN SCREEN P SEE SEPARATE REPORT (Negative)
[2020-06-23] MEDS ORDERED: VANCOMYCIN 1G 1.25 GM in 0.9% NACL 250ML 250 ML IV SCH (17:39)
[2020-06-24 04:24] VITALS: BP 145/70
[2020-06-24 05:31] LABS: MEAN CORPUSCULAR HEMOGLOBIN 34.3 pg (27.0-33.0); MEAN CORPUSCULAR HGB CONC 33.2 g/dL (32.0-36.0); MEAN CORPUSCULAR VOLUME 103.3 fL (79-99); RED BLOOD CELL COUNT(AUTO) 3.29 MIL/uL (4.50-6.20); RED CELL DISTRIBUTION WIDTH 13.4 % (11.0-15.5); WHITE BLOOD COUNT (AUTO) 6.9 K/uL (4.8-10.8)
[2020-06-24 06:03] LABS: ALBUMIN 3.2 g/dL (3.5-5.0); BILIRUBIN,TOTAL 0.5 mg/dL (0.2-1.0); MAGNESIUM 2.6 mg/dL (1.80-2.40); POTASSIUM 4.5 mmol/L (3.5-5.1); TOTAL PROTEIN, SERUM 7.5 g/dL (6.0-8.3)
[2020-06-24 06:11] LABS: CREATININE 8.8 mg/dL (0.5-1.5)
[2020-06-24] MEDS: INSULIN HUMULIN R 100 UNIT/ML 3ML SQ SCH ×2 (06:56→12:08)
[2020-06-24 08:00] VITALS: BP 117/65
[2020-06-24] MEDS ORDERED: ASPIRIN 81MG CHEW TAB PO SCH (09:00)
[2020-06-24] MEDS: ZOSYN 3.375GM+NS 50ML 50 ML IV SCH (09:00)
[2020-06-24] MEDS: Vitamin B Complex/Vit C/Folic Acid PO SCH (11:18)
[2020-06-24] MEDS: HEPARIN 5,000 UNIT VIAL SQ SCH (11:20)
[2020-06-24] MEDS: FAMOTIDINE 20MG TAB PO SCH (11:23)
[2020-06-24 12:08] VITALS: BP 130/55
[2020-06-24] MEDS ORDERED: CEPH500B PO (14:14)
== END 2020-06-24 16:00 | disposition home or self-care (01) ==
LOC: EDH 11:36 → EDHIP 11:37 → 3CH 13:25
PROVIDERS: ADMIT Internal Medicine; ATTEND Internal Medicine Gastroenterology
DX: T82.898A Other specified complication of vascular prosthetic devices, implants and grafts, initial encounter (principal); Z20.822 Contact with and (suspected) exposure to COVID-19; L03.012 Cellulitis of left finger; I13.2 Hypertensive heart and chronic kidney disease with heart failure and with stage 5 chronic kidney disease, or end stage renal disease; E11.22 Type 2 diabetes mellitus with diabetic chronic kidney disease; I50.33 Acute on chronic diastolic (congestive) heart failure; N18.6 End stage renal disease; L03.114 Cellulitis of left upper limb; E78.5 Hyperlipidemia, unspecified; D64.9 Anemia, unspecified; M79.645 Pain in left finger(s); E11.51 Type 2 diabetes mellitus with diabetic peripheral angiopathy without gangrene; I42.9 Cardiomyopathy, unspecified; Z86.73 Personal history of transient ischemic attack (TIA), and cerebral infarction without residual deficits; Z99.2 Dependence on renal dialysis; Z91.19 Patient's noncompliance with other medical treatment and regimen; Z91.15 Patient's noncompliance with renal dialysis; Z79.02 Long term (current) use of antithrombotics/antiplatelets; Z79.82 Long term (current) use of aspirin; Z79.899 Other long term (current) drug therapy; Y83.2 Surgical operation with anastomosis, bypass or graft as the cause of abnormal reaction of the patient, or of later complication, without mention of misadventure at the time of the procedure
CPT/HCPCS: 36415 ×3; 36903; 37607; 80048; 80053 ×2; 80074; 82948 ×8; 83735 ×2; 83880; 84100; 85025 ×2; 85027; 85610 ×2; 85651; 85730 ×2; 86140; 87040 ×2; 87426; 93930; 93970; 96365; 96366 ×3; 96368; 96372 ×3; 99285; A4649 ×2; C1725 ×2; C1769 ×5; C1874; C1894 ×3; G0378 ×40; J0690; J1644 ×6; J2250; J2543 ×4; J3010; J3370 ×2; J3490; J7050 ×2; Q9967; U0003; 36906; 90935; 99156; 99157

== ENCOUNTER → 2020-06-22 | Outpatient (CLI) | payer MEDICARE ==
[~2020-06-22] VITALS: Ht 160 cm; Wt 86.2 kg
[~2020-06-22] MED LIST changes: +AEC81 PO; +AMLO-257 PO; -AMLO5TAB9 PO; +BRIM5DRO OP; +CALC667C10 PO; +CARV6.25 PO; +CEPH500B PO; -CYAN500T63 PO; +CYAN500T9 PO; +FERR210T PO; +LIDOCAINE HCL 2% JELLY 5 ML TP ONE; +OMEP20CA12 PO; +SEVE800T27 PO
== END | disposition home or self-care (01) ==
LOC: WHH 08:12
PROVIDERS: ATTEND Family Medicine
DX: I96 Gangrene, not elsewhere classified (principal); E11.22 Type 2 diabetes mellitus with diabetic chronic kidney disease; I13.0 Hypertensive heart and chronic kidney disease with heart failure and stage 1 through stage 4 chronic kidney disease, or unspecified chronic kidney disease; N18.6 End stage renal disease; I50.32 Chronic diastolic (congestive) heart failure; L98.8 Other specified disorders of the skin and subcutaneous tissue; L98.498 Non-pressure chronic ulcer of skin of other sites with other specified severity; L03.012 Cellulitis of left finger; I25.110 Atherosclerotic heart disease of native coronary artery with unstable angina pectoris; E78.5 Hyperlipidemia, unspecified; I34.0 Nonrheumatic mitral (valve) insufficiency; I25.2 Old myocardial infarction; E78.00 Pure hypercholesterolemia, unspecified; E66.9 Obesity, unspecified; Z68.33 Body mass index [BMI] 33.0-33.9, adult; Z79.02 Long term (current) use of antithrombotics/antiplatelets; Z79.82 Long term (current) use of aspirin; Z99.2 Dependence on renal dialysis
CPT/HCPCS: G0463

== ENCOUNTER → 2020-06-29 | Outpatient (CLI) | payer MEDICARE ==
[~2020-06-29] MED LIST changes: -AEC81 PO; -AMLO-257 PO; -BRIM5DRO OP; +CALC667C10 PO; +CEPH500B PO; -CYAN500T9 PO; -DULA0.75 SQ; +FERR210T PO; +HONEY 1 APPL/ML TUBE TP ONE; +LIDOCAINE HCL 1% 20 ML VIAL MISC ONE; +LIDOCAINE HCL 2% JELLY 5 ML TP ONE; -NIAC-8 PO; +OMEP20CA12 PO; -SEVE800T27 PO; -TICA90TA PO
== END | disposition home or self-care (01) ==
LOC: WHH 10:25
PROVIDERS: ATTEND Family Medicine
DX: I96 Gangrene, not elsewhere classified (principal); L03.012 Cellulitis of left finger; E11.22 Type 2 diabetes mellitus with diabetic chronic kidney disease; I13.0 Hypertensive heart and chronic kidney disease with heart failure and stage 1 through stage 4 chronic kidney disease, or unspecified chronic kidney disease; N18.6 End stage renal disease; I50.32 Chronic diastolic (congestive) heart failure; L98.8 Other specified disorders of the skin and subcutaneous tissue; L98.498 Non-pressure chronic ulcer of skin of other sites with other specified severity; I25.110 Atherosclerotic heart disease of native coronary artery with unstable angina pectoris; E78.5 Hyperlipidemia, unspecified; I34.0 Nonrheumatic mitral (valve) insufficiency; I25.2 Old myocardial infarction; E78.00 Pure hypercholesterolemia, unspecified; E66.9 Obesity, unspecified; Z68.33 Body mass index [BMI] 33.0-33.9, adult; Z79.02 Long term (current) use of antithrombotics/antiplatelets; Z79.82 Long term (current) use of aspirin; Z99.2 Dependence on renal dialysis
CPT/HCPCS: 11042; A4450

== ENCOUNTER → 2020-07-06 | Outpatient (CLI) | payer MEDICARE ==
[~2020-07-06] MED LIST changes: -HONEY 1 APPL/ML TUBE TP ONE; -LIDOCAINE HCL 1% 20 ML VIAL MISC ONE
== END | disposition home or self-care (01) ==
LOC: WHH 09:00
PROVIDERS: ATTEND Family Medicine
DX: I96 Gangrene, not elsewhere classified (principal); L03.012 Cellulitis of left finger; E11.22 Type 2 diabetes mellitus with diabetic chronic kidney disease; I13.0 Hypertensive heart and chronic kidney disease with heart failure and stage 1 through stage 4 chronic kidney disease, or unspecified chronic kidney disease; N18.6 End stage renal disease; I50.32 Chronic diastolic (congestive) heart failure; L98.8 Other specified disorders of the skin and subcutaneous tissue; L98.498 Non-pressure chronic ulcer of skin of other sites with other specified severity; I25.110 Atherosclerotic heart disease of native coronary artery with unstable angina pectoris; E78.5 Hyperlipidemia, unspecified; I25.2 Old myocardial infarction; E78.00 Pure hypercholesterolemia, unspecified; E66.9 Obesity, unspecified; Z68.33 Body mass index [BMI] 33.0-33.9, adult; Z79.02 Long term (current) use of antithrombotics/antiplatelets; Z79.82 Long term (current) use of aspirin; Z99.2 Dependence on renal dialysis
CPT/HCPCS: 11042

== ENCOUNTER → 2020-07-13 | Outpatient (CLI) | payer MEDICARE ==
[~2020-07-13] MED LIST changes: -LIDOCAINE HCL 2% JELLY 5 ML TP ONE
== END | disposition home or self-care (01) ==
LOC: WHH 08:00
PROVIDERS: ATTEND Family Medicine
DX: I96 Gangrene, not elsewhere classified (principal); L03.012 Cellulitis of left finger; E11.22 Type 2 diabetes mellitus with diabetic chronic kidney disease; I13.0 Hypertensive heart and chronic kidney disease with heart failure and stage 1 through stage 4 chronic kidney disease, or unspecified chronic kidney disease; N18.6 End stage renal disease; I50.32 Chronic diastolic (congestive) heart failure; L98.8 Other specified disorders of the skin and subcutaneous tissue; L98.498 Non-pressure chronic ulcer of skin of other sites with other specified severity; I25.110 Atherosclerotic heart disease of native coronary artery with unstable angina pectoris; E78.5 Hyperlipidemia, unspecified; I25.2 Old myocardial infarction; E78.00 Pure hypercholesterolemia, unspecified; E66.9 Obesity, unspecified; Z68.33 Body mass index [BMI] 33.0-33.9, adult; Z79.02 Long term (current) use of antithrombotics/antiplatelets; Z79.82 Long term (current) use of aspirin; Z99.2 Dependence on renal dialysis
CPT/HCPCS: 11042

== ENCOUNTER → 2020-07-27 | Outpatient (CLI) | payer MEDICARE ==
[~2020-07-27] MED LIST changes: +LIDOCAINE HCL 2% JELLY 5 ML TP ONE
== END | disposition home or self-care (01) ==
LOC: WHH 08:55
PROVIDERS: ATTEND Family Medicine
DX: I96 Gangrene, not elsewhere classified (principal); L03.012 Cellulitis of left finger; E11.22 Type 2 diabetes mellitus with diabetic chronic kidney disease; I13.0 Hypertensive heart and chronic kidney disease with heart failure and stage 1 through stage 4 chronic kidney disease, or unspecified chronic kidney disease; N18.6 End stage renal disease; I50.32 Chronic diastolic (congestive) heart failure; L98.8 Other specified disorders of the skin and subcutaneous tissue; L98.498 Non-pressure chronic ulcer of skin of other sites with other specified severity; I25.110 Atherosclerotic heart disease of native coronary artery with unstable angina pectoris; E78.5 Hyperlipidemia, unspecified; I25.2 Old myocardial infarction; E78.00 Pure hypercholesterolemia, unspecified; E66.9 Obesity, unspecified; Z68.33 Body mass index [BMI] 33.0-33.9, adult; Z79.02 Long term (current) use of antithrombotics/antiplatelets; Z79.82 Long term (current) use of aspirin; Z99.2 Dependence on renal dialysis
CPT/HCPCS: 11042; 73130

== ENCOUNTER → 2020-08-03 | Outpatient (CLI) | payer MEDICARE | END | disposition home or self-care (01) | LOC: WHH 09:00 | PROVIDERS: ATTEND Family Medicine | DX: I96 Gangrene, not elsewhere classified (principal); L03.012 Cellulitis of left finger; E11.22 Type 2 diabetes mellitus with diabetic chronic kidney disease; I13.0 Hypertensive heart and chronic kidney disease with heart failure and stage 1 through stage 4 chronic kidney disease, or unspecified chronic kidney disease; N18.6 End stage renal disease; I50.32 Chronic diastolic (congestive) heart failure; L98.8 Other specified disorders of the skin and subcutaneous tissue; L98.498 Non-pressure chronic ulcer of skin of other sites with other specified severity; I25.110 Atherosclerotic heart disease of native coronary artery with unstable angina pectoris; E78.5 Hyperlipidemia, unspecified; I25.2 Old myocardial infarction; E78.00 Pure hypercholesterolemia, unspecified; E66.9 Obesity, unspecified; Z68.33 Body mass index [BMI] 33.0-33.9, adult; Z79.02 Long term (current) use of antithrombotics/antiplatelets; Z79.82 Long term (current) use of aspirin; Z99.2 Dependence on renal dialysis | CPT/HCPCS: 11042; A6021; A6197 ==

== ENCOUNTER → 2020-08-10 | Outpatient (CLI) | payer MEDICARE | END | disposition home or self-care (01) | LOC: WHH 08:45 | PROVIDERS: ATTEND Family Medicine | DX: I96 Gangrene, not elsewhere classified (principal); E11.52 Type 2 diabetes mellitus with diabetic peripheral angiopathy with gangrene; L03.012 Cellulitis of left finger; E11.22 Type 2 diabetes mellitus with diabetic chronic kidney disease; I13.0 Hypertensive heart and chronic kidney disease with heart failure and stage 1 through stage 4 chronic kidney disease, or unspecified chronic kidney disease; N18.6 End stage renal disease; I50.32 Chronic diastolic (congestive) heart failure; E11.40 Type 2 diabetes mellitus with diabetic neuropathy, unspecified; L98.8 Other specified disorders of the skin and subcutaneous tissue; L98.498 Non-pressure chronic ulcer of skin of other sites with other specified severity; I25.110 Atherosclerotic heart disease of native coronary artery with unstable angina pectoris; E78.5 Hyperlipidemia, unspecified; I25.2 Old myocardial infarction; I34.0 Nonrheumatic mitral (valve) insufficiency; E78.00 Pure hypercholesterolemia, unspecified; E66.9 Obesity, unspecified; Z68.33 Body mass index [BMI] 33.0-33.9, adult; Z79.02 Long term (current) use of antithrombotics/antiplatelets; Z79.82 Long term (current) use of aspirin; Z99.2 Dependence on renal dialysis; Z79.899 Other long term (current) drug therapy; Z86.73 Personal history of transient ischemic attack (TIA), and cerebral infarction without residual deficits | CPT/HCPCS: 11042; A4450; A6021; A6197 ==

== ENCOUNTER → 2020-08-24 | Outpatient (CLI) | payer MEDICARE | END | disposition home or self-care (01) | LOC: WHH 08:46 | PROVIDERS: ATTEND Family Medicine | DX: I96 Gangrene, not elsewhere classified (principal); E11.52 Type 2 diabetes mellitus with diabetic peripheral angiopathy with gangrene; L03.012 Cellulitis of left finger; E11.22 Type 2 diabetes mellitus with diabetic chronic kidney disease; I13.0 Hypertensive heart and chronic kidney disease with heart failure and stage 1 through stage 4 chronic kidney disease, or unspecified chronic kidney disease; N18.6 End stage renal disease; I50.32 Chronic diastolic (congestive) heart failure; E11.40 Type 2 diabetes mellitus with diabetic neuropathy, unspecified; L98.8 Other specified disorders of the skin and subcutaneous tissue; L98.498 Non-pressure chronic ulcer of skin of other sites with other specified severity; I25.110 Atherosclerotic heart disease of native coronary artery with unstable angina pectoris; E78.5 Hyperlipidemia, unspecified; I25.2 Old myocardial infarction; I34.0 Nonrheumatic mitral (valve) insufficiency; E78.00 Pure hypercholesterolemia, unspecified; E66.9 Obesity, unspecified; Z68.33 Body mass index [BMI] 33.0-33.9, adult; Z79.02 Long term (current) use of antithrombotics/antiplatelets; Z79.82 Long term (current) use of aspirin; Z99.2 Dependence on renal dialysis; Z79.899 Other long term (current) drug therapy; Z86.73 Personal history of transient ischemic attack (TIA), and cerebral infarction without residual deficits | CPT/HCPCS: G0463 ==

== ENCOUNTER → 2020-10-12 | Outpatient (CLI) | payer MEDICARE ==
[~2020-10-12] MED LIST changes: -LIDOCAINE HCL 2% JELLY 5 ML TP ONE
== END | disposition home or self-care (01) ==
LOC: WHH 13:20
PROVIDERS: ATTEND Family Medicine
DX: I96 Gangrene, not elsewhere classified (principal); E11.52 Type 2 diabetes mellitus with diabetic peripheral angiopathy with gangrene; L03.312 Cellulitis of back [any part except buttock and flank]; L98.8 Other specified disorders of the skin and subcutaneous tissue; E11.22 Type 2 diabetes mellitus with diabetic chronic kidney disease; I13.0 Hypertensive heart and chronic kidney disease with heart failure and stage 1 through stage 4 chronic kidney disease, or unspecified chronic kidney disease; N18.6 End stage renal disease; I50.32 Chronic diastolic (congestive) heart failure; E11.40 Type 2 diabetes mellitus with diabetic neuropathy, unspecified; I25.110 Atherosclerotic heart disease of native coronary artery with unstable angina pectoris; E78.5 Hyperlipidemia, unspecified; I25.2 Old myocardial infarction; I34.0 Nonrheumatic mitral (valve) insufficiency; E78.00 Pure hypercholesterolemia, unspecified; E66.9 Obesity, unspecified; Z68.33 Body mass index [BMI] 33.0-33.9, adult; Z79.02 Long term (current) use of antithrombotics/antiplatelets; Z79.82 Long term (current) use of aspirin; Z99.2 Dependence on renal dialysis; Z79.899 Other long term (current) drug therapy; Z86.73 Personal history of transient ischemic attack (TIA), and cerebral infarction without residual deficits
CPT/HCPCS: G0463

== ENCOUNTER → 2021-08-16 | Outpatient (CLI) | payer MEDICARE ==
[~2021-08-16] MED LIST changes: +ASPI-1005 PO; +ASPI-1197 PO; +CARV12.511 PO; -CARV6.25 PO; +CARV6.2579 PO; -CEPH500B PO; -GABA-531 PO; +LIDOCAINE HCL 4% LTA SOL 4 ML VIAL TP ONE; +LISI40TA9 PO; +OMEP20TA20 PO; +SEMA14TA2 PO; -SITA50TA PO
== END | disposition home or self-care (01) ==
LOC: WHH 08:03
PROVIDERS: ATTEND Family Medicine
DX: T86.828 Other complications of skin graft (allograft) (autograft) (principal); T81.31XD Disruption of external operation (surgical) wound, not elsewhere classified, subsequent encounter; S81.802D Unspecified open wound, left lower leg, subsequent encounter; E11.628 Type 2 diabetes mellitus with other skin complications; E11.22 Type 2 diabetes mellitus with diabetic chronic kidney disease; I13.2 Hypertensive heart and chronic kidney disease with heart failure and with stage 5 chronic kidney disease, or end stage renal disease; N18.6 End stage renal disease; I50.32 Chronic diastolic (congestive) heart failure; E78.5 Hyperlipidemia, unspecified; E11.40 Type 2 diabetes mellitus with diabetic neuropathy, unspecified; E11.51 Type 2 diabetes mellitus with diabetic peripheral angiopathy without gangrene; I48.0 Paroxysmal atrial fibrillation; I25.110 Atherosclerotic heart disease of native coronary artery with unstable angina pectoris; I25.2 Old myocardial infarction; I34.0 Nonrheumatic mitral (valve) insufficiency; G47.33 Obstructive sleep apnea (adult) (pediatric); E78.00 Pure hypercholesterolemia, unspecified; E66.9 Obesity, unspecified; Z68.33 Body mass index [BMI] 33.0-33.9, adult; Z79.02 Long term (current) use of antithrombotics/antiplatelets; Z99.2 Dependence on renal dialysis; Z79.82 Long term (current) use of aspirin; Z79.899 Other long term (current) drug therapy; Z86.73 Personal history of transient ischemic attack (TIA), and cerebral infarction without residual deficits; Z79.84 Long term (current) use of oral hypoglycemic drugs; Z87.891 Personal history of nicotine dependence; Y83.2 Surgical operation with anastomosis, bypass or graft as the cause of abnormal reaction of the patient, or of later complication, without mention of misadventure at the time of the procedure; Y83.8 Other surgical procedures as the cause of abnormal reaction of the patient, or of later complication, without mention of misadventure at the time of the procedure; X58.XXXD Exposure to other specified factors, subsequent encounter
CPT/HCPCS: 11042; 11045; A6260

== ENCOUNTER → 2021-08-23 | Outpatient (CLI) | payer MEDICARE | END | disposition home or self-care (01) | LOC: WHH 08:52 | PROVIDERS: ATTEND Family Medicine | DX: T86.828 Other complications of skin graft (allograft) (autograft) (principal); T81.31XD Disruption of external operation (surgical) wound, not elsewhere classified, subsequent encounter; S81.802D Unspecified open wound, left lower leg, subsequent encounter; E11.628 Type 2 diabetes mellitus with other skin complications; E11.22 Type 2 diabetes mellitus with diabetic chronic kidney disease; I13.2 Hypertensive heart and chronic kidney disease with heart failure and with stage 5 chronic kidney disease, or end stage renal disease; N18.6 End stage renal disease; I50.32 Chronic diastolic (congestive) heart failure; E78.5 Hyperlipidemia, unspecified; E11.40 Type 2 diabetes mellitus with diabetic neuropathy, unspecified; E11.51 Type 2 diabetes mellitus with diabetic peripheral angiopathy without gangrene; I48.0 Paroxysmal atrial fibrillation; I25.110 Atherosclerotic heart disease of native coronary artery with unstable angina pectoris; I25.2 Old myocardial infarction; I34.0 Nonrheumatic mitral (valve) insufficiency; G47.33 Obstructive sleep apnea (adult) (pediatric); E78.00 Pure hypercholesterolemia, unspecified; E66.9 Obesity, unspecified; Z68.33 Body mass index [BMI] 33.0-33.9, adult; Z79.02 Long term (current) use of antithrombotics/antiplatelets; Z99.2 Dependence on renal dialysis; Z79.82 Long term (current) use of aspirin; Z79.899 Other long term (current) drug therapy; Z86.73 Personal history of transient ischemic attack (TIA), and cerebral infarction without residual deficits; Z79.84 Long term (current) use of oral hypoglycemic drugs; Z87.891 Personal history of nicotine dependence; Y83.2 Surgical operation with anastomosis, bypass or graft as the cause of abnormal reaction of the patient, or of later complication, without mention of misadventure at the time of the procedure; Y83.8 Other surgical procedures as the cause of abnormal reaction of the patient, or of later complication, without mention of misadventure at the time of the procedure; X58.XXXD Exposure to other specified factors, subsequent encounter | CPT/HCPCS: 11042; 11045 ==

== ENCOUNTER → 2021-08-30 | Outpatient (CLI) | payer MEDICARE ==
[~2021-08-30] MED LIST changes: +ACET-2079 PO; +SITA50TA PO
== END | disposition home or self-care (01) ==
LOC: WHH 09:02
PROVIDERS: ATTEND Family Medicine
DX: T86.828 Other complications of skin graft (allograft) (autograft) (principal); T81.31XD Disruption of external operation (surgical) wound, not elsewhere classified, subsequent encounter; S81.802D Unspecified open wound, left lower leg, subsequent encounter; E11.628 Type 2 diabetes mellitus with other skin complications; E11.22 Type 2 diabetes mellitus with diabetic chronic kidney disease; I13.2 Hypertensive heart and chronic kidney disease with heart failure and with stage 5 chronic kidney disease, or end stage renal disease; N18.6 End stage renal disease; I50.32 Chronic diastolic (congestive) heart failure; E78.5 Hyperlipidemia, unspecified; E11.40 Type 2 diabetes mellitus with diabetic neuropathy, unspecified; E11.51 Type 2 diabetes mellitus with diabetic peripheral angiopathy without gangrene; I48.0 Paroxysmal atrial fibrillation; I25.110 Atherosclerotic heart disease of native coronary artery with unstable angina pectoris; I25.2 Old myocardial infarction; I34.0 Nonrheumatic mitral (valve) insufficiency; G47.33 Obstructive sleep apnea (adult) (pediatric); E78.00 Pure hypercholesterolemia, unspecified; E66.9 Obesity, unspecified; Z68.33 Body mass index [BMI] 33.0-33.9, adult; Z79.02 Long term (current) use of antithrombotics/antiplatelets; Z99.2 Dependence on renal dialysis; Z79.82 Long term (current) use of aspirin; Z79.899 Other long term (current) drug therapy; Z86.73 Personal history of transient ischemic attack (TIA), and cerebral infarction without residual deficits; Z79.84 Long term (current) use of oral hypoglycemic drugs; Z87.891 Personal history of nicotine dependence; Y83.2 Surgical operation with anastomosis, bypass or graft as the cause of abnormal reaction of the patient, or of later complication, without mention of misadventure at the time of the procedure; Y83.8 Other surgical procedures as the cause of abnormal reaction of the patient, or of later complication, without mention of misadventure at the time of the procedure; X58.XXXD Exposure to other specified factors, subsequent encounter
CPT/HCPCS: 11042; 11045; A6260

== ENCOUNTER 2021-09-03 15:20 | Inpatient (IN) | payer MEDICARE ==
[~2021-09-03] VITALS: Ht 160 cm; Wt 79.0 kg
[~2021-09-03 15:20] MED LIST changes: -ACET-2079 PO; -LIDOCAINE HCL 4% LTA SOL 4 ML VIAL TP ONE; -SITA50TA PO
[2021-09-03] MEDS ORDERED: VANCOMYCIN KIT 1 GM/250 ML IV.KIT IV ONE (16:00)
[2021-09-03 16:10] LABS: BASOPHILS % (AUTO) 0.4 % (0.0-5.0); EOSINOPHILS % (AUTO) 2.7 % (0.0-8.0); LYMPHOCYTES % (AUTO) 12.2 % (21.0-51.0); MEAN CORPUSCULAR HEMOGLOBIN 33.4 pg (27.0-33.0); MEAN CORPUSCULAR HGB CONC 32.2 g/dL (32.0-36.0); MEAN CORPUSCULAR VOLUME 103.9 fL (79-99); MONOCYTES % (AUTO) 10.1 % (3.0-13.0); NEUTROPHILS % (AUTO) 73.5 % (40.0-77.0); PLATELET COUNT (AUTO) 181 K/uL (130-400); RED BLOOD CELL COUNT(AUTO) 3.08 MIL/uL (4.50-6.20); RED CELL DISTRIBUTION WIDTH 14.7 % (11.0-15.5); WHITE BLOOD COUNT (AUTO) 4.8 K/uL (4.8-10.8)
[2021-09-03 16:23] LABS: PROTHROMBIN TIME 10.9 SEC (9.6-11.6)
[2021-09-03] MEDS: ZOSYN 3.375GM +NS 50ML IV SCH ×2 (16:24→23:09)
[2021-09-03 16:32] LABS: B-TYPE NATRIURETIC PEPTIDE 481 pg/mL (0-100)
[2021-09-03 16:34] LABS: ALBUMIN 2.6 g/dL (3.5-5.0); BILIRUBIN,TOTAL 0.4 mg/dL (0.2-1.0); POTASSIUM 4.6 mmol/L (3.5-5.1); TOTAL PROTEIN, SERUM 6.7 g/dL (6.0-8.3)
[2021-09-03 16:36] LABS: CREATININE 9.6 mg/dL (0.5-1.5)
[2021-09-03] MEDS ORDERED: ACETAMINOPHEN 650 MG SUPPOSITORY RC PRN (21:00)
[2021-09-03] MEDS ORDERED: ACETAMINOPHEN 325 MG TAB PO PRN (21:00)
[2021-09-03] MEDS ORDERED: LACTULOSE 20 GM/30 ML UDCUP PO PRN (21:00)
[2021-09-03] MEDS ORDERED: LABETALOL 20MG SYG IV PRN (21:00)
[2021-09-03] MEDS ORDERED: DOCUSATE SODIUM 100 MG CAP PO PRN (21:00)
[2021-09-03] MEDS ORDERED: TEMAZEPAM 15 MG CAPSULE PO PRN (21:00)
[2021-09-03] MEDS ORDERED: HYDRALAZINE 20MG/ML VIAL IV PRN (21:00)
[2021-09-03] MEDS ORDERED: TRAMADOL HCL 50 MG TABLET PO PRN (21:00)
[2021-09-03] MEDS: INSULIN HUMULIN R 100 UNIT/ML 3ML SQ SCH (21:00)
[2021-09-03] MEDS ORDERED: ONDANSETRON 4MG INJ IVP PRN (21:00)
[2021-09-03] MEDS ORDERED: IPRATROPIUM/ALBUTEROL SULFATE 3 ML SOLUTION IH PRN (21:00)
[2021-09-03] MEDS ORDERED: CLONIDINE HCL 0.1 MG TABLET PO PRN (21:00)
[2021-09-03] MEDS ORDERED: [UNRECOGNIZED DRUG - REMARK] MISC SCH (21:30)
[2021-09-03] MEDS ORDERED: VANCOMYCIN PROTOCOL PER PHARMACY IV SCH (22:00)
[2021-09-03] MEDS ORDERED: CEFEPIME HCL 2 GM VIAL IVP SCH (22:00)
[2021-09-03] MEDS ORDERED: VANCOMYCIN 1G/250ML KIT 250 ML IV SCH (22:00)
[2021-09-03 22:47] VITALS: BP 121/70
[2021-09-03] MEDS ORDERED: ACET-2079 PO (22:55)
[2021-09-03] MEDS ORDERED: SITA50TA PO (22:55)
[2021-09-03] MEDS ORDERED: SEMA14TA2 PO (22:55)
[2021-09-03] MEDS: CEFEPIME HCL 1 GM VIAL IVP SCH (23:01)
[2021-09-04 03:40] VITALS: BP 134/86
[2021-09-04 05:02] LABS: BASOPHILS % (AUTO) 0.5 % (0.0-5.0); EOSINOPHILS % (AUTO) 2.5 % (0.0-8.0); HEMATOCRIT 33.5 % (42-54); LYMPHOCYTES % (AUTO) 11.5 % (21.0-51.0); MEAN CORPUSCULAR HEMOGLOBIN 32.9 pg (27.0-33.0); MONOCYTES % (AUTO) 13.4 % (3.0-13.0); NEUTROPHILS % (AUTO) 71.3 % (40.0-77.0); PLATELET COUNT (AUTO) 181 K/uL (130-400); RED BLOOD CELL COUNT(AUTO) 3.16 MIL/uL (4.50-6.20); RED CELL DISTRIBUTION WIDTH 14.9 % (11.0-15.5); WHITE BLOOD COUNT (AUTO) 6.1 K/uL (4.8-10.8)
[2021-09-04] MEDS: INSULIN HUMULIN R 100 UNIT/ML 3ML SQ SCH ×4 (05:07→21:00)
[2021-09-04 05:15] LABS: MAGNESIUM 2.2 mg/dL (1.80-2.40); PHOSPHORUS 8.4 mg/dL (2.5-4.9); POTASSIUM 5.6 mmol/L (3.5-5.1)
[2021-09-04] MEDS: KAYEXALATE 15GM/60ML PO PRN ×2 (05:32→09:04)
[2021-09-04] MEDS: ZOSYN 3.375GM +NS 50ML IV SCH ×3 (06:10→21:06)
[2021-09-04] MEDS ORDERED: ACETAMINOPHEN WITH CODEINE 1 TAB TAB PO PRN (07:00)
[2021-09-04 07:30] VITALS: BP 138/53
[2021-09-04] MEDS: PANTOPRAZOLE 40 MG TAB DR PO SCH (09:02)
[2021-09-04] MEDS: LISINOPRIL 40 MG TABLET PO SCH (09:02)
[2021-09-04] MEDS: CARVEDILOL 12.5 MG TABLET PO SCH ×2 (09:02→17:17)
[2021-09-04] MEDS: PIOGLITAZONE 45MG TAB PO SCH (09:02)
[2021-09-04] MEDS: ASPIRIN 81MG CHEW TAB PO SCH (09:02)
[2021-09-04] MEDS: ENOXAPARIN SODIUM 30 MG/0.3 ML SQ SCH (09:03)
[2021-09-04 11:34] VITALS: BP 145/52
[2021-09-04 16:00] VITALS: BP 152/39
[2021-09-04 19:45] VITALS: BP 142/43
[2021-09-04] MEDS: SODIUM HYPOCHLORITE 0.125% 473 ML SOLUTION TP SCH (21:05)
[2021-09-04] MEDS: CEFEPIME HCL 1 GM VIAL IVP SCH (21:06)
[2021-09-04 23:40] VITALS: BP 168/50
[2021-09-05] VITALS (21 sets, daily range): BP systolic 109–168; BP diastolic 40–79
[2021-09-05 05:58] LABS: MEAN CORPUSCULAR HEMOGLOBIN 33.3 pg (27.0-33.0); MEAN CORPUSCULAR HGB CONC 31.3 g/dL (32.0-36.0); MEAN CORPUSCULAR VOLUME 106.4 fL (79-99); PLATELET COUNT (AUTO) 154 K/uL (130-400); RED BLOOD CELL COUNT(AUTO) 2.82 MIL/uL (4.50-6.20); RED CELL DISTRIBUTION WIDTH 14.6 % (11.0-15.5); WHITE BLOOD COUNT (AUTO) 6.2 K/uL (4.8-10.8)
[2021-09-05 06:19] LABS: ALBUMIN 2.4 g/dL (3.5-5.0); BILIRUBIN,TOTAL 0.3 mg/dL (0.2-1.0); MAGNESIUM 2.1 mg/dL (1.80-2.40); POTASSIUM 5.3 mmol/L (3.5-5.1); TOTAL PROTEIN, SERUM 6.3 g/dL (6.0-8.3)
[2021-09-05 06:27] LABS: CREATININE 13.3 mg/dL (0.5-1.5)
[2021-09-05] MEDS: CARVEDILOL 12.5 MG TABLET PO SCH ×2 (06:27→16:00)
[2021-09-05] MEDS: INSULIN HUMULIN R 100 UNIT/ML 3ML SQ SCH ×4 (06:42→21:00)
[2021-09-05 07:17] LABS: BASOPHILS % (MANUAL) 1 % (0-2); EOSINOPHILS % (MANUAL) 3 % (1-6); LYMPHOCYTES % (MANUAL) 7 % (22-44); MAN.DIFF COMMENT-IMPRESSION MANUAL DIFFERENTIAL; MONOCYTES % (MANUAL) 5 % (2-9); PLATELET MORPHOLOGY COMMENT ADEQUATE; SEGMENTED NEUTROPHILS % 84 % (40-70)
[2021-09-05] MEDS: Vitamin B Complex/Vit C/Folic Acid PO SCH (08:15)
[2021-09-05] MEDS: PANTOPRAZOLE 40 MG TAB DR PO SCH (08:15)
[2021-09-05] MEDS: ENOXAPARIN SODIUM 30 MG/0.3 ML SQ SCH (08:15)
[2021-09-05] MEDS: ZOSYN 3.375GM +NS 50ML IV SCH ×2 (08:15→21:47)
[2021-09-05] MEDS: LISINOPRIL 40 MG TABLET PO SCH (08:16)
[2021-09-05] MEDS: ASPIRIN 81MG CHEW TAB PO SCH (08:16)
[2021-09-05] MEDS: SODIUM HYPOCHLORITE 0.125% 473 ML SOLUTION TP SCH ×2 (08:16→22:14)
[2021-09-05] MEDS: PIOGLITAZONE 45MG TAB PO SCH (09:16)
[2021-09-05] MEDS ORDERED: HEPARIN 5,000 UNIT VIAL IV SCH (11:00)
[2021-09-05 20:20] LABS: HEPATITIS B SURFACE ANTIGEN Non-Reactive (Negative)
[2021-09-05] MEDS ORDERED: EPOETIN ALFA-EPBX (ESRD) 10,000 UNIT/ML VIAL SQ SCH (21:00)
[2021-09-05] MEDS ORDERED: VANCOMYCIN 1G/250ML KIT 250 ML IV ONE (22:16)
[2021-09-05] MEDS: HEPARIN 5,000 UNIT VIAL SQ SCH (23:46)
[2021-09-06 03:31] VITALS: BP 172/56
[2021-09-06 06:20] LABS: BASOPHILS % (AUTO) 0.4 % (0.0-5.0); EOSINOPHILS % (AUTO) 2.9 % (0.0-8.0); HEMATOCRIT 29.8 % (42-54); LYMPHOCYTES % (AUTO) 11.8 % (21.0-51.0); MEAN CORPUSCULAR HGB CONC 31.5 g/dL (32.0-36.0); MEAN CORPUSCULAR VOLUME 104.6 fL (79-99); MONOCYTES % (AUTO) 15.1 % (3.0-13.0); NEUTROPHILS % (AUTO) 69.3 % (40.0-77.0); PLATELET COUNT (AUTO) 151 K/uL (130-400); RED BLOOD CELL COUNT(AUTO) 2.85 MIL/uL (4.50-6.20); RED CELL DISTRIBUTION WIDTH 14.6 % (11.0-15.5); WHITE BLOOD COUNT (AUTO) 5.5 K/uL (4.8-10.8)
[2021-09-06 06:35] LABS: ALBUMIN 2.3 g/dL (3.5-5.0); BILIRUBIN,TOTAL 0.2 mg/dL (0.2-1.0); MAGNESIUM 1.9 mg/dL (1.80-2.40); PHOSPHORUS 7.4 mg/dL (2.5-4.9); POTASSIUM 4.8 mmol/L (3.5-5.1); TOTAL PROTEIN, SERUM 6.5 g/dL (6.0-8.3)
[2021-09-06] MEDS: INSULIN HUMULIN R 100 UNIT/ML 3ML SQ SCH ×3 (06:36→16:30)
[2021-09-06 06:39] LABS: CREATININE 9.9 mg/dL (0.5-1.5)
[2021-09-06] MEDS: CARVEDILOL 12.5 MG TABLET PO SCH ×2 (06:47→16:33)
[2021-09-06 07:38] VITALS: BP 158/82
[2021-09-06] MEDS: Vitamin B Complex/Vit C/Folic Acid PO SCH (07:58)
[2021-09-06] MEDS: PIOGLITAZONE 45MG TAB PO SCH (07:58)
[2021-09-06] MEDS: PANTOPRAZOLE 40 MG TAB DR PO SCH (07:58)
[2021-09-06] MEDS: LISINOPRIL 40 MG TABLET PO SCH (07:59)
[2021-09-06] MEDS: ASPIRIN 81MG CHEW TAB PO SCH (07:59)
[2021-09-06] MEDS: SODIUM HYPOCHLORITE 0.125% 473 ML SOLUTION TP SCH (08:00)
[2021-09-06] MEDS: ZOSYN 3.375GM +NS 50ML IV SCH (08:42)
[2021-09-06] MEDS: HEPARIN 5,000 UNIT VIAL SQ SCH (11:38)
[2021-09-06 11:40] VITALS: BP 135/84
[2021-09-06 16:00] VITALS: BP 148/68
[2021-09-06 16:33] VITALS: BP 148/68
[2021-09-07] MEDS ORDERED: VANCOMYCIN 1G/250ML KIT 250 ML IV SCH (16:00)
[2021-09-10] MEDS ORDERED: VANCOMYCIN 1G/250ML KIT 250 ML IV SCH (22:00)
== END 2021-09-06 18:00 | DRG 291 ==
LOC: EDH 15:20 → EDHIP 18:16 → OBSVTOIN 18:16 → 3DH 22:13
PROVIDERS: ADMIT Internal Medicine; ATTEND Internal Medicine
PROC: 5A1D70Z Performance of Urinary Filtration, Intermittent, Less than 6 Hours Per Day (ICD-10-PCS; principal; 2021-09-04)
PROC: 5A1D70Z Performance of Urinary Filtration, Intermittent, Less than 6 Hours Per Day (ICD-10-PCS; 2021-09-05)
DX: I13.2 Hypertensive heart and chronic kidney disease with heart failure and with stage 5 chronic kidney disease, or end stage renal disease (principal); N18.6 End stage renal disease; E87.1 Hypo-osmolality and hyponatremia; L97.929 Non-pressure chronic ulcer of unspecified part of left lower leg with unspecified severity; R07.9 Chest pain, unspecified; E11.51 Type 2 diabetes mellitus with diabetic peripheral angiopathy without gangrene; E11.621 Type 2 diabetes mellitus with foot ulcer; E83.51 Hypocalcemia; E78.5 Hyperlipidemia, unspecified; E87.5 Hyperkalemia; I50.9 Heart failure, unspecified; E78.00 Pure hypercholesterolemia, unspecified; D72.810 Lymphocytopenia; E11.22 Type 2 diabetes mellitus with diabetic chronic kidney disease; D64.9 Anemia, unspecified; Z79.899 Other long term (current) drug therapy; I25.10 Atherosclerotic heart disease of native coronary artery without angina pectoris; Z91.19 Patient's noncompliance with other medical treatment and regimen; Z99.2 Dependence on renal dialysis; Z83.3 Family history of diabetes mellitus; E87.8 Other disorders of electrolyte and fluid balance, not elsewhere classified; I77.9 Disorder of arteries and arterioles, unspecified
CPT/HCPCS: 36415; 71045; 73590; 73718; 80048; 80053; 80202; 82948; 83605; 83735; 83880; 84100; 84145; 84484; 85025; 85610; 86704; 86706; 87040; 87070; 87076; 87077; 87186; 87340; 90935; 93005; 93926; G0378; J0692; J1644; J1650; J2543; J3370

== ENCOUNTER → 2021-09-27 | Outpatient (CLI) | payer MEDICARE ==
[~2021-09-27] MED LIST changes: +ACET-2079 PO; -ASPI-1197 PO; -CALC667C10 PO; -CARV6.2579 PO; -FERR210T PO; +LIDOCAINE HCL 4% LTA SOL 4 ML VIAL TP ONE; -OMEP20CA12 PO; -OMEP20TA20 PO; -SIMV40TA59 PO; +SITA50TA PO
== END | disposition home or self-care (01) ==
LOC: WHH 10:35
PROVIDERS: ATTEND Family Medicine
DX: T81.31XD Disruption of external operation (surgical) wound, not elsewhere classified, subsequent encounter (principal); T86.828 Other complications of skin graft (allograft) (autograft); S81.802D Unspecified open wound, left lower leg, subsequent encounter; E11.628 Type 2 diabetes mellitus with other skin complications; E11.22 Type 2 diabetes mellitus with diabetic chronic kidney disease; I13.2 Hypertensive heart and chronic kidney disease with heart failure and with stage 5 chronic kidney disease, or end stage renal disease; N18.6 End stage renal disease; I50.32 Chronic diastolic (congestive) heart failure; E78.5 Hyperlipidemia, unspecified; E11.40 Type 2 diabetes mellitus with diabetic neuropathy, unspecified; E11.51 Type 2 diabetes mellitus with diabetic peripheral angiopathy without gangrene; I48.0 Paroxysmal atrial fibrillation; I25.110 Atherosclerotic heart disease of native coronary artery with unstable angina pectoris; I25.2 Old myocardial infarction; I34.0 Nonrheumatic mitral (valve) insufficiency; G47.33 Obstructive sleep apnea (adult) (pediatric); E78.00 Pure hypercholesterolemia, unspecified; E66.9 Obesity, unspecified; Z68.33 Body mass index [BMI] 33.0-33.9, adult; Z79.02 Long term (current) use of antithrombotics/antiplatelets; Z99.2 Dependence on renal dialysis; Z79.82 Long term (current) use of aspirin; Z79.899 Other long term (current) drug therapy; Z86.73 Personal history of transient ischemic attack (TIA), and cerebral infarction without residual deficits; Z79.84 Long term (current) use of oral hypoglycemic drugs; Z87.891 Personal history of nicotine dependence; Y83.2 Surgical operation with anastomosis, bypass or graft as the cause of abnormal reaction of the patient, or of later complication, without mention of misadventure at the time of the procedure; Y83.8 Other surgical procedures as the cause of abnormal reaction of the patient, or of later complication, without mention of misadventure at the time of the procedure
CPT/HCPCS: A4450; A6021; A6197; G0463

== ENCOUNTER → 2021-10-04 | Outpatient (CLI) | payer MEDICARE ==
[~2021-10-04] MED LIST changes: +AMOX-426 PO; +FERR210T PO; +SEVE800 PO
== END | disposition home or self-care (01) ==
LOC: WHH 09:14
PROVIDERS: ATTEND Family Medicine
DX: T86.828 Other complications of skin graft (allograft) (autograft) (principal); T81.31XD Disruption of external operation (surgical) wound, not elsewhere classified, subsequent encounter; S81.802D Unspecified open wound, left lower leg, subsequent encounter; E11.628 Type 2 diabetes mellitus with other skin complications; E11.22 Type 2 diabetes mellitus with diabetic chronic kidney disease; I13.2 Hypertensive heart and chronic kidney disease with heart failure and with stage 5 chronic kidney disease, or end stage renal disease; N18.6 End stage renal disease; I50.32 Chronic diastolic (congestive) heart failure; E78.5 Hyperlipidemia, unspecified; E11.40 Type 2 diabetes mellitus with diabetic neuropathy, unspecified; E11.51 Type 2 diabetes mellitus with diabetic peripheral angiopathy without gangrene; I48.0 Paroxysmal atrial fibrillation; I25.10 Atherosclerotic heart disease of native coronary artery without angina pectoris; I25.2 Old myocardial infarction; G47.33 Obstructive sleep apnea (adult) (pediatric); E78.00 Pure hypercholesterolemia, unspecified; E66.9 Obesity, unspecified; Z68.33 Body mass index [BMI] 33.0-33.9, adult; Z79.02 Long term (current) use of antithrombotics/antiplatelets; Z99.2 Dependence on renal dialysis; Z79.82 Long term (current) use of aspirin; Z79.899 Other long term (current) drug therapy; Z86.73 Personal history of transient ischemic attack (TIA), and cerebral infarction without residual deficits; Z79.84 Long term (current) use of oral hypoglycemic drugs; Z87.891 Personal history of nicotine dependence; X58.XXXD Exposure to other specified factors, subsequent encounter; Y83.8 Other surgical procedures as the cause of abnormal reaction of the patient, or of later complication, without mention of misadventure at the time of the procedure
CPT/HCPCS: 15271; Q4133; A6197; A6207

== ENCOUNTER → 2021-10-11 | Outpatient (CLI) | payer MEDICARE ==
[~2021-10-11] MED LIST changes: -AMOX-426 PO; -FERR210T PO; -LIDOCAINE HCL 4% LTA SOL 4 ML VIAL TP ONE; -SEVE800 PO
== END | disposition home or self-care (01) ==
LOC: WHH 09:25
PROVIDERS: ATTEND Family Medicine
DX: T86.828 Other complications of skin graft (allograft) (autograft) (principal); T81.31XD Disruption of external operation (surgical) wound, not elsewhere classified, subsequent encounter; E11.628 Type 2 diabetes mellitus with other skin complications; S81.802D Unspecified open wound, left lower leg, subsequent encounter; E11.22 Type 2 diabetes mellitus with diabetic chronic kidney disease; I13.2 Hypertensive heart and chronic kidney disease with heart failure and with stage 5 chronic kidney disease, or end stage renal disease; N18.6 End stage renal disease; I50.32 Chronic diastolic (congestive) heart failure; E78.5 Hyperlipidemia, unspecified; E11.40 Type 2 diabetes mellitus with diabetic neuropathy, unspecified; E11.51 Type 2 diabetes mellitus with diabetic peripheral angiopathy without gangrene; I48.0 Paroxysmal atrial fibrillation; I25.10 Atherosclerotic heart disease of native coronary artery without angina pectoris; I25.2 Old myocardial infarction; G47.33 Obstructive sleep apnea (adult) (pediatric); E78.00 Pure hypercholesterolemia, unspecified; E66.9 Obesity, unspecified; Z68.33 Body mass index [BMI] 33.0-33.9, adult; Z79.02 Long term (current) use of antithrombotics/antiplatelets; Z79.82 Long term (current) use of aspirin; Z79.899 Other long term (current) drug therapy; Z86.73 Personal history of transient ischemic attack (TIA), and cerebral infarction without residual deficits; Z87.891 Personal history of nicotine dependence; X58.XXXD Exposure to other specified factors, subsequent encounter; Y83.8 Other surgical procedures as the cause of abnormal reaction of the patient, or of later complication, without mention of misadventure at the time of the procedure; Y83.2 Surgical operation with anastomosis, bypass or graft as the cause of abnormal reaction of the patient, or of later complication, without mention of misadventure at the time of the procedure; Y92.238 Other place in hospital as the place of occurrence of the external cause
CPT/HCPCS: 15271; A6197; Q4133

== ENCOUNTER → 2021-10-18 | Outpatient (CLI) | payer MEDICARE ==
[~2021-10-18] MED LIST changes: +AMOX-426 PO; +FERR210T PO; +LIDOCAINE HCL 4% LTA SOL 4 ML VIAL TP ONE; +SEVE800 PO
== END | disposition home or self-care (01) ==
LOC: WHH 09:14
PROVIDERS: ATTEND Family Medicine
DX: T86.828 Other complications of skin graft (allograft) (autograft) (principal); T81.31XD Disruption of external operation (surgical) wound, not elsewhere classified, subsequent encounter; E11.628 Type 2 diabetes mellitus with other skin complications; S81.802D Unspecified open wound, left lower leg, subsequent encounter; E11.22 Type 2 diabetes mellitus with diabetic chronic kidney disease; I13.2 Hypertensive heart and chronic kidney disease with heart failure and with stage 5 chronic kidney disease, or end stage renal disease; N18.6 End stage renal disease; I50.32 Chronic diastolic (congestive) heart failure; E78.5 Hyperlipidemia, unspecified; E11.40 Type 2 diabetes mellitus with diabetic neuropathy, unspecified; E11.51 Type 2 diabetes mellitus with diabetic peripheral angiopathy without gangrene; I48.0 Paroxysmal atrial fibrillation; I25.10 Atherosclerotic heart disease of native coronary artery without angina pectoris; I25.2 Old myocardial infarction; G47.33 Obstructive sleep apnea (adult) (pediatric); E78.00 Pure hypercholesterolemia, unspecified; E66.9 Obesity, unspecified; Z68.33 Body mass index [BMI] 33.0-33.9, adult; Z79.02 Long term (current) use of antithrombotics/antiplatelets; Z79.82 Long term (current) use of aspirin; Z79.899 Other long term (current) drug therapy; Z86.73 Personal history of transient ischemic attack (TIA), and cerebral infarction without residual deficits; Z87.891 Personal history of nicotine dependence; X58.XXXD Exposure to other specified factors, subsequent encounter; Y83.8 Other surgical procedures as the cause of abnormal reaction of the patient, or of later complication, without mention of misadventure at the time of the procedure; Y83.2 Surgical operation with anastomosis, bypass or graft as the cause of abnormal reaction of the patient, or of later complication, without mention of misadventure at the time of the procedure
CPT/HCPCS: 15271; Q4133; A6197; A6207

== ENCOUNTER → 2021-10-25 | Outpatient (CLI) | payer MEDICARE ==
[~2021-10-25] MED LIST changes: -AMOX-426 PO; -FERR210T PO; -SEVE800 PO
== END | disposition home or self-care (01) ==
LOC: WHH 11:21
PROVIDERS: ATTEND Family Medicine
DX: T81.31XD Disruption of external operation (surgical) wound, not elsewhere classified, subsequent encounter (principal); T86.828 Other complications of skin graft (allograft) (autograft); E11.628 Type 2 diabetes mellitus with other skin complications; S81.802D Unspecified open wound, left lower leg, subsequent encounter; E11.22 Type 2 diabetes mellitus with diabetic chronic kidney disease; I13.2 Hypertensive heart and chronic kidney disease with heart failure and with stage 5 chronic kidney disease, or end stage renal disease; N18.6 End stage renal disease; I50.32 Chronic diastolic (congestive) heart failure; E78.5 Hyperlipidemia, unspecified; E11.40 Type 2 diabetes mellitus with diabetic neuropathy, unspecified; E11.51 Type 2 diabetes mellitus with diabetic peripheral angiopathy without gangrene; I48.0 Paroxysmal atrial fibrillation; I25.10 Atherosclerotic heart disease of native coronary artery without angina pectoris; I25.2 Old myocardial infarction; G47.33 Obstructive sleep apnea (adult) (pediatric); E78.00 Pure hypercholesterolemia, unspecified; E66.9 Obesity, unspecified; Z68.33 Body mass index [BMI] 33.0-33.9, adult; Z79.02 Long term (current) use of antithrombotics/antiplatelets; Z79.82 Long term (current) use of aspirin; Z79.899 Other long term (current) drug therapy; Z86.73 Personal history of transient ischemic attack (TIA), and cerebral infarction without residual deficits; Z87.891 Personal history of nicotine dependence; X58.XXXD Exposure to other specified factors, subsequent encounter; Y83.8 Other surgical procedures as the cause of abnormal reaction of the patient, or of later complication, without mention of misadventure at the time of the procedure; Y83.2 Surgical operation with anastomosis, bypass or graft as the cause of abnormal reaction of the patient, or of later complication, without mention of misadventure at the time of the procedure
CPT/HCPCS: 15271; A6197; A6207; Q4133

== ENCOUNTER → 2021-11-01 | Outpatient (CLI) | payer MEDICARE | END | disposition home or self-care (01) | LOC: WHH 09:28 | PROVIDERS: ATTEND Family Medicine | DX: T81.31XD Disruption of external operation (surgical) wound, not elsewhere classified, subsequent encounter (principal); T86.828 Other complications of skin graft (allograft) (autograft); E11.628 Type 2 diabetes mellitus with other skin complications; S81.802D Unspecified open wound, left lower leg, subsequent encounter; E11.22 Type 2 diabetes mellitus with diabetic chronic kidney disease; I13.2 Hypertensive heart and chronic kidney disease with heart failure and with stage 5 chronic kidney disease, or end stage renal disease; N18.6 End stage renal disease; I50.32 Chronic diastolic (congestive) heart failure; E78.5 Hyperlipidemia, unspecified; E11.40 Type 2 diabetes mellitus with diabetic neuropathy, unspecified; E11.51 Type 2 diabetes mellitus with diabetic peripheral angiopathy without gangrene; I48.0 Paroxysmal atrial fibrillation; I25.10 Atherosclerotic heart disease of native coronary artery without angina pectoris; I25.2 Old myocardial infarction; G47.33 Obstructive sleep apnea (adult) (pediatric); E78.00 Pure hypercholesterolemia, unspecified; E66.9 Obesity, unspecified; Z68.33 Body mass index [BMI] 33.0-33.9, adult; Z79.02 Long term (current) use of antithrombotics/antiplatelets; Z79.82 Long term (current) use of aspirin; Z79.899 Other long term (current) drug therapy; Z86.73 Personal history of transient ischemic attack (TIA), and cerebral infarction without residual deficits; Z87.891 Personal history of nicotine dependence; X58.XXXD Exposure to other specified factors, subsequent encounter; Y83.8 Other surgical procedures as the cause of abnormal reaction of the patient, or of later complication, without mention of misadventure at the time of the procedure | CPT/HCPCS: 15271; Q4133 ==

== ENCOUNTER 2021-11-05 16:13 | Inpatient (IN) | payer MEDICARE ==
[~2021-11-05] VITALS: Ht 160 cm; Wt 75.4 kg
[~2021-11-05 16:13] MED LIST changes: -LIDOCAINE HCL 4% LTA SOL 4 ML VIAL TP ONE
[2021-11-05 17:03] LABS: BASOPHILS % (AUTO) 0.3 % (0.0-5.0); EOSINOPHILS % (AUTO) 0.1 % (0.0-8.0); HEMATOCRIT 32.9 % (42-54); LYMPHOCYTES % (AUTO) 0.9 % (21.0-51.0); MEAN CORPUSCULAR HEMOGLOBIN 31.3 pg (27.0-33.0); MEAN CORPUSCULAR HGB CONC 33.1 g/dL (32.0-36.0); MEAN CORPUSCULAR VOLUME 94.5 fL (79-99); MONOCYTES % (AUTO) 2.4 % (3.0-13.0); NEUTROPHILS % (AUTO) 95.3 % (40.0-77.0); PLATELET COUNT (AUTO) 202 K/uL (130-400); RED BLOOD CELL COUNT(AUTO) 3.48 MIL/uL (4.50-6.20); RED CELL DISTRIBUTION WIDTH 13.7 % (11.0-15.5); WHITE BLOOD COUNT (AUTO) 18.7 K/uL (4.8-10.8)
[2021-11-05 17:21] LABS: ALBUMIN 2.6 g/dL (3.5-5.0); POTASSIUM 3.3 mmol/L (3.5-5.1); TOTAL PROTEIN, SERUM 6.5 g/dL (6.0-8.3)
[2021-11-05 17:24] LABS: CREATININE 15.2 mg/dL (0.5-1.5)
[2021-11-05] MEDS ORDERED: ACETAMINOPHEN 325 MG TAB PO PRN (20:00)
[2021-11-05] MEDS ORDERED: ACETAMINOPHEN 650 MG SUPPOSITORY RC PRN (20:00)
[2021-11-05] MEDS ORDERED: HYDROMORPHONE 1 MG INJ IVP PRN (20:00)
[2021-11-05] MEDS: INSULIN HUMULIN R 100 UNIT/ML 3ML SQ SCH (20:52)
[2021-11-05] MEDS ORDERED: FERR210T PO (20:57)
[2021-11-05] MEDS: AZITHROMYCIN 500MG+NS 250ML IV SCH (23:47)
[2021-11-06] VITALS (8 sets, daily range): BP systolic 92–155; BP diastolic 47–90
[2021-11-06 06:32] LABS: HEMATOCRIT 32.2 % (42-54); MEAN CORPUSCULAR HEMOGLOBIN 31.7 pg (27.0-33.0); MEAN CORPUSCULAR HGB CONC 33.2 g/dL (32.0-36.0); MEAN CORPUSCULAR VOLUME 95.3 fL (79-99); RED BLOOD CELL COUNT(AUTO) 3.38 MIL/uL (4.50-6.20); RED CELL DISTRIBUTION WIDTH 13.7 % (11.0-15.5); WHITE BLOOD COUNT (AUTO) 16.2 K/uL (4.8-10.8)
[2021-11-06 06:56] LABS: ALBUMIN 2.3 g/dL (3.5-5.0); MAGNESIUM 2.2 mg/dL (1.80-2.40); PHOSPHORUS 11.1 mg/dL (2.5-4.9); TOTAL PROTEIN, SERUM 6.3 g/dL (6.0-8.3)
[2021-11-06 07:01] LABS: CREATININE 16.5 mg/dL (0.5-1.5)
[2021-11-06] MEDS: INSULIN HUMULIN R 100 UNIT/ML 3ML SQ SCH ×4 (07:30→21:00)
[2021-11-06] MEDS ORDERED: AZITHROMYCIN 500MG+NS 250ML IV SCH (09:00)
[2021-11-06] MEDS: AZITHROMYCIN 500MG+NS 250ML IV SCH (09:12)
[2021-11-06] MEDS: ENOXAPARIN SODIUM 30 MG/0.3 ML SQ SCH (09:13)
[2021-11-06] MEDS: CEFTRIAXONE 1G VIAL IVP SCH (09:13)
[2021-11-06 14:46] LABS: ABG BASE EXCESS -7.2 mmol/L (-2.0-3.0); ABG HCO3 17.9 mmol/L (21.0-28.0); ABG OXYGEN SATURATION 90.1 % (95.0-99.0); ABG PCO2 35 mmHg (35-48)
[2021-11-06] MEDS ORDERED: 0.9% NACL 250ML 250 ML IV ONE (20:00)
[2021-11-06 20:11] LABS: HEPATITIS B SURFACE ANTIGEN Non-Reactive (Nonreactive)
[2021-11-06] MEDS ORDERED: MIDODRINE HCL 5 MG TABLET PO SCH (20:20)
[2021-11-07] VITALS (16 sets, daily range): BP systolic 97–181; BP diastolic 45–88
[2021-11-07 04:52] LABS: HEMATOCRIT 33.1 % (42-54); MEAN CORPUSCULAR HEMOGLOBIN 31.4 pg (27.0-33.0); MEAN CORPUSCULAR HGB CONC 32.9 g/dL (32.0-36.0); MEAN CORPUSCULAR VOLUME 95.4 fL (79-99); PLATELET COUNT (AUTO) 209 K/uL (130-400); RED BLOOD CELL COUNT(AUTO) 3.47 MIL/uL (4.50-6.20); RED CELL DISTRIBUTION WIDTH 13.9 % (11.0-15.5); WHITE BLOOD COUNT (AUTO) 11.1 K/uL (4.8-10.8)
[2021-11-07 05:23] LABS: ALBUMIN 2.5 g/dL (3.5-5.0); MAGNESIUM 2.4 mg/dL (1.80-2.40); PHOSPHORUS 12.7 mg/dL (2.5-4.9); POTASSIUM 4.1 mmol/L (3.5-5.1); TOTAL PROTEIN, SERUM 6.7 g/dL (6.0-8.3)
[2021-11-07 05:28] LABS: CREATININE 17.7 mg/dL (0.5-1.5)
[2021-11-07 05:35] LABS: EOSINOPHILS % (MANUAL) 1 % (1-6); LYMPHOCYTES % (MANUAL) 14 % (22-44); MAN.DIFF COMMENT-IMPRESSION MANUAL DIFFERENTIAL; MONOCYTES % (MANUAL) 2 % (2-9); SEGMENTED NEUTROPHILS % 83 % (40-70)
[2021-11-07 05:36] LABS: PLATELET MORPHOLOGY COMMENT ADEQUATE
[2021-11-07] MEDS: INSULIN HUMULIN R 100 UNIT/ML 3ML SQ SCH ×4 (06:43→21:00)
[2021-11-07] MEDS: CEFTRIAXONE 1G VIAL IVP SCH (09:00)
[2021-11-07] MEDS: ENOXAPARIN SODIUM 30 MG/0.3 ML SQ SCH (09:00)
[2021-11-07] MEDS: AZITHROMYCIN 500MG+NS 250ML IV SCH (09:00)
[2021-11-07] MEDS: Vitamin B Complex/Vit C/Folic Acid PO SCH (09:00)
[2021-11-07] MEDS ORDERED: LOPERAMIDE HCL 2 MG CAP PO ONE (10:05)
[2021-11-07] MEDS ORDERED: LOPERAMIDE HCL 2 MG CAP PO SCH (10:30)
[2021-11-07] MEDS ORDERED: LOPERAMIDE 1 MG/7.5 ML UDCUP PO SCH (10:30)
[2021-11-07] MEDS ORDERED: HEPARIN 5,000 UNIT VIAL IRRIG PRN (12:30)
[2021-11-07] MEDS: SEVELAMER HCL 800 MG TABLET PO SCH ×2 (17:00→19:39)
[2021-11-08] VITALS: BP 147/66
[2021-11-08 04:00] VITALS: BP 166/62
[2021-11-08 04:12] LABS: BASOPHILS % (AUTO) 0.3 % (0.0-5.0); EOSINOPHILS % (AUTO) 0.8 % (0.0-8.0); LYMPHOCYTES % (AUTO) 6.9 % (21.0-51.0); MEAN CORPUSCULAR HEMOGLOBIN 31.8 pg (27.0-33.0); MEAN CORPUSCULAR HGB CONC 33.2 g/dL (32.0-36.0); MEAN CORPUSCULAR VOLUME 95.7 fL (79-99); MONOCYTES % (AUTO) 8.6 % (3.0-13.0); NEUTROPHILS % (AUTO) 82.6 % (40.0-77.0); PLATELET COUNT (AUTO) 174 K/uL (130-400); RED BLOOD CELL COUNT(AUTO) 3.24 MIL/uL (4.50-6.20); RED CELL DISTRIBUTION WIDTH 13.4 % (11.0-15.5); WHITE BLOOD COUNT (AUTO) 16.4 K/uL (4.8-10.8)
[2021-11-08 04:34] LABS: ALBUMIN 2.5 g/dL (3.5-5.0); PHOSPHORUS 7.7 mg/dL (2.5-4.9); POTASSIUM 3.4 mmol/L (3.5-5.1); TOTAL PROTEIN, SERUM 6.7 g/dL (6.0-8.3)
[2021-11-08 04:43] LABS: CREATININE 11.8 mg/dL (0.5-1.5)
[2021-11-08] MEDS: INSULIN HUMULIN R 100 UNIT/ML 3ML SQ SCH ×4 (07:07→20:24)
[2021-11-08 07:48] VITALS: BP 164/79
[2021-11-08] MEDS: Vitamin B Complex/Vit C/Folic Acid PO SCH (08:27)
[2021-11-08] MEDS: SEVELAMER HCL 800 MG TABLET PO SCH ×3 (08:27→16:12)
[2021-11-08] MEDS: CEFTRIAXONE 1G VIAL IVP SCH (08:33)
[2021-11-08] MEDS: AZITHROMYCIN 500MG+NS 250ML IV SCH (09:10)
[2021-11-08] MEDS: ENOXAPARIN SODIUM 30 MG/0.3 ML SQ SCH (09:11)
[2021-11-08 11:25] VITALS: BP 161/75
[2021-11-08 15:40] VITALS: BP 108/62
[2021-11-08 20:00] VITALS: BP 166/83
[2021-11-09] VITALS (15 sets, daily range): BP systolic 122–180; BP diastolic 67–88
[2021-11-09 04:32] LABS: BASOPHILS % (AUTO) 0.4 % (0.0-5.0); EOSINOPHILS % (AUTO) 2.7 % (0.0-8.0); HEMATOCRIT 29.9 % (42-54); LYMPHOCYTES % (AUTO) 14.3 % (21.0-51.0); MEAN CORPUSCULAR HEMOGLOBIN 31.6 pg (27.0-33.0); MEAN CORPUSCULAR HGB CONC 33.1 g/dL (32.0-36.0); MEAN CORPUSCULAR VOLUME 95.5 fL (79-99); MONOCYTES % (AUTO) 13.1 % (3.0-13.0); NEUTROPHILS % (AUTO) 68.5 % (40.0-77.0); PLATELET COUNT (AUTO) 179 K/uL (130-400); RED BLOOD CELL COUNT(AUTO) 3.13 MIL/uL (4.50-6.20); RED CELL DISTRIBUTION WIDTH 13.3 % (11.0-15.5)
[2021-11-09 04:56] LABS: ALBUMIN 2.4 g/dL (3.5-5.0); MAGNESIUM 2.1 mg/dL (1.80-2.40); PHOSPHORUS 7.7 mg/dL (2.5-4.9); POTASSIUM 3.3 mmol/L (3.5-5.1); TOTAL PROTEIN, SERUM 6.3 g/dL (6.0-8.3)
[2021-11-09 05:01] LABS: CREATININE 13.2 mg/dL (0.5-1.5)
[2021-11-09] MEDS: INSULIN HUMULIN R 100 UNIT/ML 3ML SQ SCH ×3 (06:18→15:37)
[2021-11-09] MEDS: Vitamin B Complex/Vit C/Folic Acid PO SCH (08:56)
[2021-11-09] MEDS: SEVELAMER HCL 800 MG TABLET PO SCH ×3 (08:57→16:43)
[2021-11-09] MEDS: ENOXAPARIN SODIUM 30 MG/0.3 ML SQ SCH (09:00)
[2021-11-09] MEDS: CEFTRIAXONE 1G VIAL IVP SCH (16:42)
[2021-11-09] MEDS: AZITHROMYCIN 500MG+NS 250ML IV SCH (16:42)
[2021-11-09] MEDS ORDERED: SEVE800 PO (17:39)
[2021-11-09] MEDS ORDERED: AMOX-426 PO (17:39)
== END 2021-11-09 19:15 | disposition home or self-care (01) | DRG 193 ==
LOC: EDH 16:13 → OBSVTOIN 19:50 → EDHIP 19:50 → 4CH 11-06 10:34
PROVIDERS: ADMIT Internal Medicine Critical Care Medicine; ATTEND Internal Medicine Critical Care Medicine
PROC: 5A1D70Z Performance of Urinary Filtration, Intermittent, Less than 6 Hours Per Day (ICD-10-PCS; principal; 2021-11-07)
PROC: 5A1D70Z Performance of Urinary Filtration, Intermittent, Less than 6 Hours Per Day (ICD-10-PCS; 2021-11-09)
DX: J18.9 Pneumonia, unspecified organism (principal); N18.6 End stage renal disease; I13.2 Hypertensive heart and chronic kidney disease with heart failure and with stage 5 chronic kidney disease, or end stage renal disease; N17.9 Acute kidney failure, unspecified; I50.9 Heart failure, unspecified; E11.22 Type 2 diabetes mellitus with diabetic chronic kidney disease; E11.51 Type 2 diabetes mellitus with diabetic peripheral angiopathy without gangrene; E78.5 Hyperlipidemia, unspecified; E88.09 Other disorders of plasma-protein metabolism, not elsewhere classified; Z99.2 Dependence on renal dialysis; Z91.19 Patient's noncompliance with other medical treatment and regimen; Z91.15 Patient's noncompliance with renal dialysis; I25.10 Atherosclerotic heart disease of native coronary artery without angina pectoris; D64.9 Anemia, unspecified; K81.9 Cholecystitis, unspecified; E87.70 Fluid overload, unspecified
CPT/HCPCS: 36415; 36600; 70450; 71045; 74176; 76705; 80053; 82803; 82948; 83605; 83690; 83735; 84100; 84145; 84484; 85025; 85027; 85378; 86704; 86706; 87340; 90935; 93005; 93970; G0378; J0456; J0696; J1170; J1644; J1650; J1815; J7050

== ENCOUNTER → 2021-11-22 | Outpatient (CLI) | payer MEDICARE ==
[~2021-11-22] MED LIST changes: +AMOX-426 PO; +FERR210T PO; +HONEY 1 APPL/ML TUBE TP ONE; +LIDOCAINE HCL 4% LTA SOL 4 ML VIAL TP ONE; +SEVE800 PO
== END | disposition home or self-care (01) ==
LOC: WHH 09:22
PROVIDERS: ATTEND Family Medicine
DX: T81.89XD Other complications of procedures, not elsewhere classified, subsequent encounter (principal); S81.802D Unspecified open wound, left lower leg, subsequent encounter; E11.628 Type 2 diabetes mellitus with other skin complications; E11.22 Type 2 diabetes mellitus with diabetic chronic kidney disease; I13.2 Hypertensive heart and chronic kidney disease with heart failure and with stage 5 chronic kidney disease, or end stage renal disease; N18.6 End stage renal disease; I50.32 Chronic diastolic (congestive) heart failure; E78.5 Hyperlipidemia, unspecified; E11.40 Type 2 diabetes mellitus with diabetic neuropathy, unspecified; E11.51 Type 2 diabetes mellitus with diabetic peripheral angiopathy without gangrene; I48.0 Paroxysmal atrial fibrillation; I25.10 Atherosclerotic heart disease of native coronary artery without angina pectoris; I25.2 Old myocardial infarction; G47.33 Obstructive sleep apnea (adult) (pediatric); E78.00 Pure hypercholesterolemia, unspecified; E66.9 Obesity, unspecified; Z68.31 Body mass index [BMI] 31.0-31.9, adult; Z79.02 Long term (current) use of antithrombotics/antiplatelets; Z79.82 Long term (current) use of aspirin; Z79.899 Other long term (current) drug therapy; Z86.73 Personal history of transient ischemic attack (TIA), and cerebral infarction without residual deficits; Z87.891 Personal history of nicotine dependence; X58.XXXD Exposure to other specified factors, subsequent encounter; Y83.8 Other surgical procedures as the cause of abnormal reaction of the patient, or of later complication, without mention of misadventure at the time of the procedure
CPT/HCPCS: 11042

== ENCOUNTER 2022-09-01 23:35 | Emergency (ER) | payer OTHER, MEDICARE ==
[~2022-09-01] VITALS: Ht 160 cm; Wt 77.1 kg
[~2022-09-01 23:35] MED LIST changes: -ACET-2079 PO; -AMOX-426 PO; -ASPI-1005 PO; +ATOR20TA65 PO; +CALC667T6 PO; -CARV12.511 PO; +CARV6.2579 PO; +FLUD0.1T2 PO; +FOLI0.4T6 PO; -HONEY 1 APPL/ML TUBE TP ONE; +LEVO-70 PO; -LIDOCAINE HCL 4% LTA SOL 4 ML VIAL TP ONE; -LISI40TA9 PO; +ONDA4TAB10 PO; +PANT40TA54 PO; -SEMA14TA2 PO; -SEVE800 PO
[2022-09-02 00:05] LABS: BASOPHILS % (AUTO) 1.2 % (0.0-5.0); EOSINOPHILS % (AUTO) 4.4 % (0.0-8.0); HEMATOCRIT 37.9 % (42-54); LYMPHOCYTES % (AUTO) 16.6 % (21.0-51.0); MEAN CORPUSCULAR HEMOGLOBIN 32.8 pg (27.0-33.0); MEAN CORPUSCULAR HGB CONC 31.9 g/dL (32.0-36.0); MEAN CORPUSCULAR VOLUME 102.7 fL (79-99); MONOCYTES % (AUTO) 9.6 % (3.0-13.0); NEUTROPHILS % (AUTO) 67.5 % (40.0-77.0); PLATELET COUNT (AUTO) 222 K/uL (130-400); RED BLOOD CELL COUNT(AUTO) 3.69 MIL/uL (4.50-6.20); RED CELL DISTRIBUTION WIDTH 14.6 % (11.0-15.5); WHITE BLOOD COUNT (AUTO) 6.9 K/uL (4.8-10.8)
[2022-09-02 00:23] LABS: ALBUMIN 3.1 g/dL (3.5-5.0); MAGNESIUM 2.9 mg/dL (1.80-2.40)
[2022-09-02 00:24] LABS: POTASSIUM 6.5 mmol/L (3.5-5.1)
[2022-09-02 00:25] LABS: CREATININE 11.5 mg/dL (0.5-1.5)
[2022-09-02] MEDS ORDERED: CALCIUM GLUC 1GM/10ML VIAL ONE (05:22)
[2022-09-02] MEDS ORDERED: CALCIUM GLUC 1GM 1 GM in 0.9%NACL 100ML 100 ML IV SCH (05:30)
[2022-09-02 07:47] VITALS: BP 142/89
[2022-09-04] MEDS ORDERED: HEPARIN 5,000 UNIT VIAL ONE (20:28)
[2022-09-05] MEDS ORDERED: CARV12.511 PO (02:56)
[2022-09-05] MEDS ORDERED: PIOG45TA64 PO (02:56)
[2022-09-05] MEDS ORDERED: FERR210T PO (02:56)
[2022-09-05] MEDS ORDERED: ONDA4TAB10 PO (02:56)
[2022-09-05] MEDS ORDERED: ATOR20TA65 PO (02:56)
[2022-09-05] MEDS ORDERED: CALC667C10 PO (02:56)
[2022-09-05] MEDS ORDERED: LISI40TA9 PO (02:56)
[2022-09-05] MEDS ORDERED: QUET100T34 PO (02:56)
[2022-09-05] MEDS ORDERED: OMEP20CA12 PO (02:56)
[2022-09-05] MEDS ORDERED: SITA50TA PO (02:56)
[2022-09-05] MEDS ORDERED: FOLI0.4T6 PO (02:56)
== END 2022-09-02 07:28 | disposition home or self-care (01) ==
LOC: EDH 23:35
DX: E11.22 Type 2 diabetes mellitus with diabetic chronic kidney disease (principal); I12.0 Hypertensive chronic kidney disease with stage 5 chronic kidney disease or end stage renal disease; N18.6 End stage renal disease; E87.5 Hyperkalemia; Z99.2 Dependence on renal dialysis; W18.2XXA Fall in (into) shower or empty bathtub, initial encounter; Y93.E1 Activity, personal bathing and showering; Y92.89 Other specified places as the place of occurrence of the external cause; Y99.8 Other external cause status; Z79.84 Long term (current) use of oral hypoglycemic drugs; Z86.73 Personal history of transient ischemic attack (TIA), and cerebral infarction without residual deficits
CPT/HCPCS: 99284; 83735; 80053; 83690; 85025; 82010; 36415; 96365; 96366; J0610

== ENCOUNTER 2022-11-29 07:21 | Day surgery (SDC) | payer OTHER, MEDICARE ==
[2022-11-28 14:35] LABS: BASOPHILS # (AUTO) 0.05 K/uL (0.00-0.20); BASOPHILS % (AUTO) 0.7 % (0.0-5.0); EOSINOPHILS # (AUTO) 0.46 K/uL (0.00-0.70); EOSINOPHILS % (AUTO) 6.7 % (0.0-8.0); HEMATOCRIT 38.6 % (42-54); IMMATURE GRANULOCYTE ABSOLUTE 0.05 K/uL (0-1); LYMPHOCYTES # (AUTO) 1.1 K/uL (1.0-4.8); LYMPHOCYTES % (AUTO) 16.1 % (21.0-51.0); MEAN CORPUSCULAR HGB CONC 32.4 g/dL (32.0-36.0); MEAN CORPUSCULAR VOLUME 104.9 fL (79-99); MONOCYTES # (AUTO) 0.6 K/uL (0.1-1.0); MONOCYTES % (AUTO) 9.3 % (3.0-13.0); NEUTROPHILS # (AUTO) 4.6 K/uL (1.8-7.7); NEUTROPHILS % (AUTO) 66.5 % (40.0-77.0); PLATELET COUNT (AUTO) 156 K/uL (130-400); RED BLOOD CELL COUNT(AUTO) 3.68 MIL/uL (4.50-6.20); RED CELL DISTRIBUTION WIDTH 15.7 % (11.0-15.5); WHITE BLOOD COUNT (AUTO) 6.9 K/uL (4.8-10.8)
[2022-11-28 14:45] LABS: INR 0.93 (0.85-1.15); PROTHROMBIN TIME 10.8 SEC (9.6-11.6)
[2022-11-28 14:47] LABS: PARTIAL THROMBOPLASTIN TIME 29.3 SEC (26.3-35.5)
[2022-11-28 14:57] LABS: ALBUMIN 3.3 g/dL (3.5-5.0); BILIRUBIN,TOTAL 0.4 mg/dL (0.2-1.0); TOTAL PROTEIN, SERUM 8.2 g/dL (6.0-8.3)
[2022-11-28 15:14] LABS: CREATININE 10.8 mg/dL (0.5-1.5)
[2022-11-28 15:16] LABS: POTASSIUM 6.4 mmol/L (3.5-5.1)
[2022-11-28 15:30] VITALS: BP 147/77; PULSE 78; RESP 16
[~2022-11-29] VITALS: Ht 160 cm; Wt 78.3 kg
[~2022-11-29 07:21] MED LIST changes: -CALC667T6 PO; +CARV12.511 PO; -CARV6.2579 PO; -FERR210T PO; -FLUD0.1T2 PO; -FOLI0.4T6 PO; -LEVO-70 PO; +LIPA1CAP8 PO; +LISI40TA9 PO; -PANT40TA54 PO; +auryxia PO
[2022-11-29 07:35] VITALS: BP 155/81; PULSE 81; RESP 18
[2022-11-29] MEDS ORDERED: 0.9% NACL 500ML IV.SOLN 500 ML IV ONE (07:35)
[2022-11-29] MEDS ORDERED: CEFAZOLIN SODIUM 2 GM VIAL ONE (07:48)
[2022-11-29 08:12] LABS: CREATININE 11.1 mg/dL (0.5-1.5); POTASSIUM 6.3 mmol/L (3.5-5.1)
== END 2022-11-29 09:33 | disposition home or self-care (01) ==
LOC: DAH 07:21
PROVIDERS: ATTEND Student in an Organized Health Care Education/Training Program
DX: N18.6 End stage renal disease (principal); Z20.822 Contact with and (suspected) exposure to COVID-19; Z79.01 Long term (current) use of anticoagulants; Z53.8 Procedure and treatment not carried out for other reasons; Z79.899 Other long term (current) drug therapy
CPT/HCPCS: 86900; 87426; 80053; 85025; 85610; 85730; 86850; 86901; 36415 ×2; 71101; 93005; 80048; 82948; A6260; A4663; J7040; A4215; A4223; A4222; A4221; J0690

== ENCOUNTER 2022-12-27 07:26 | Day surgery (SDC) | payer OTHER, MEDICARE ==
[~2022-12-27] VITALS: Ht 160 cm; Wt 79.4 kg
[2022-12-27] VITALS (19 sets, daily range): BP systolic 92–184; BP diastolic 41–91; PULSE 68–79; RESP 12–19
[2022-12-27 08:22] LABS: BASOPHILS # (AUTO) 0.07 K/uL (0.00-0.20); BASOPHILS % (AUTO) 1.1 % (0.0-5.0); EOSINOPHILS # (AUTO) 0.41 K/uL (0.00-0.70); EOSINOPHILS % (AUTO) 6.6 % (0.0-8.0); HEMATOCRIT 36.4 % (42-54); IMMATURE GRANULOCYTE ABSOLUTE 0.06 K/uL (0-1); LYMPHOCYTES # (AUTO) 1.2 K/uL (1.0-4.8); LYMPHOCYTES % (AUTO) 19.2 % (21.0-51.0); MEAN CORPUSCULAR HGB CONC 32.4 g/dL (32.0-36.0); MEAN CORPUSCULAR VOLUME 104.9 fL (79-99); MONOCYTES # (AUTO) 0.6 K/uL (0.1-1.0); MONOCYTES % (AUTO) 8.9 % (3.0-13.0); NEUTROPHILS # (AUTO) 3.9 K/uL (1.8-7.7); NEUTROPHILS % (AUTO) 63.2 % (40.0-77.0); PLATELET COUNT (AUTO) 172 K/uL (130-400); RED BLOOD CELL COUNT(AUTO) 3.47 MIL/uL (4.50-6.20); RED CELL DISTRIBUTION WIDTH 14.7 % (11.0-15.5); WHITE BLOOD COUNT (AUTO) 6.2 K/uL (4.8-10.8)
[2022-12-27 08:33] LABS: INR 0.97 (0.85-1.15); PROTHROMBIN TIME 11.3 SEC (9.6-11.6)
[2022-12-27 08:34] LABS: PARTIAL THROMBOPLASTIN TIME 30.2 SEC (26.3-35.5)
[2022-12-27 08:44] LABS: ALBUMIN 3.2 g/dL (3.5-5.0); BILIRUBIN,TOTAL 0.5 mg/dL (0.2-1.0); POTASSIUM 5.2 mmol/L (3.5-5.1)
[2022-12-27 08:46] LABS: CREATININE 7.9 mg/dL (0.5-1.5)
[2022-12-27] MEDS ORDERED: CEFAZOLIN SODIUM 2 GM VIAL ONE (10:16)
[2022-12-27] MEDS ORDERED: 0.9% NACL 500ML IV.SOLN 500 ML IV ONE (10:16)
[2022-12-27] MEDS ORDERED: BUPIVACAINE/PF 0.25% 30ML VIAL IJ ONE (12:48)
[2022-12-27] MEDS ORDERED: LIDOCAINE HCL 1% 20 ML VIAL ONE (12:48)
[2022-12-27] MEDS ORDERED: MIDAZOLAM HCL 1 MG/ML 2ML VIAL ONE (12:56)
[2022-12-27] MEDS ORDERED: FENTANYL CITRATE PF 50 MCG/1 ML 2ML VIAL ONE ×4 (12:56→16:15)
[2022-12-27] MEDS ORDERED: ROCURONIUM 10MG/1ML SYR 10 MG/ML ML ONE (13:00)
[2022-12-27] MEDS ORDERED: PROPOFOL 10 MG/ML 20ML VIAL IV ONE (13:00)
[2022-12-27] MEDS ORDERED: CEFAZOLIN SODIUM 2 GM VIAL IVPB ONE (13:20)
[2022-12-27] MEDS ORDERED: [UNRECOGNIZED DRUG - OTHER] IJ STA (14:56)
[2022-12-27] MEDS ORDERED: DESMOPRESSIN IJ STA (14:56)
[2022-12-27] MEDS ORDERED: NEOSTIGMINE 5MG/5ML SYR IV ONE (16:15)
[2022-12-27] MEDS ORDERED: GLYCOPYRROLATE 1 MG/5 ML SYRINGE ONE (16:15)
[2022-12-27] MEDS ORDERED: ONDANSETRON 4MG INJ ONE (16:39)
== END 2022-12-27 19:10 | disposition home or self-care (01) ==
LOC: DAH 07:26
PROVIDERS: ATTEND Student in an Organized Health Care Education/Training Program
DX: E11.22 Type 2 diabetes mellitus with diabetic chronic kidney disease (principal); I12.0 Hypertensive chronic kidney disease with stage 5 chronic kidney disease or end stage renal disease; N18.6 End stage renal disease; Z79.899 Other long term (current) drug therapy; Z98.890 Other specified postprocedural states; Z86.73 Personal history of transient ischemic attack (TIA), and cerebral infarction without residual deficits; Z99.2 Dependence on renal dialysis; Z79.01 Long term (current) use of anticoagulants
CPT/HCPCS: 36830; 86900; 80053; 85025; 85610; 85730; 86850; 86901; 82948 ×2; 36415; 93005; J2597; J7040; J3010 ×4; J3490; J2710; J2704; J2405; J1644 ×2; J0690 ×2; A4649 ×3; C1713 ×2; C1768; A4223; A4222; A4216; J2250; G0168